=== PATIENT | female | born 1985 | race Caucasian/White ===

== ENCOUNTER 2022-10-11 10:58 | Inpatient (IN) ==
[2022-10-11] MEDS ORDERED: HYDROmorphone INJ 1 MG/ML SYRINGE IV STA (11:09)
[2022-10-11] MEDS ORDERED: ONDANSETRON INJ 2 MG/ML 2 ML VIAL IV STA (11:09)
[2022-10-11] MEDS ORDERED: SODIUM CHLORIDE 0.9% 1000ML 1,000 ML IV ONE (11:09)
--- NOTE | 2022-10-11 11:14 | Emergency Department Note ---
Impression & Plan Abdominal pain, RUQ, Biliary colic ED Provider Note Name: DOT GAYTAN Age: 37 Sex: F Arrives Via: Walk-In Informant: Patient ED Provider: Garland Steele MD Chief Complaint: Right upper quadrant pain Impression: As per impressions above Medical Decision Makin-year-old female with history of obesity, diabetes, hypertension, dyslipidemia, GERD arrives for evaluation of worsening right upper quadrant/epigastric abdominal pain. Notes she is having fevers last night. Is been ongoing for the last few months including a ER visit which showed a distended gallbladder no clear evidence of cholecystitis. She was evaluated in the outpatient clinic earlier today with an outpatient ultrasound revealing concerns for acute cholecystitis. I did review the ultrasound findings from outside clinic which note gallbladder distention with Stark sign positive but no other clear evidence of acute cholecystitis on imaging. With her history and findings I thought it is reasonable to get labs which are essentially unremarkable. She had been given some IV pain medications and fluids and is doing much better. Given the recurrence of this and the fact she was sent by [facility] for general surgery evaluation I think it is reasonable to consult them. Initial plan they requested patient be admitted to hospitalist service though given surgical nature of case patient was admitted to their service for further management. Patient is stable no distress and comfortable with this plan. Prior Medical Record and Triage/Nursing Notes reviewed by Me External chart review by me including ultrasound done in outside clinic earlier today. Differentials:Biliary colic, cholecystitis, cholangitis, pancreatitis, peptic ulcer disease, GERD, bowel ischemia, appendicitis, renal colic, pyelonephritis amongst many other pathologies considered. Vital Signs: reviewed and remarkable for no significant abnormalities Interventions: Dilaudid 1 mg IV, normal saline bolus 1 L, Zofran 4 mg IV Labs:Reviewed and remarkable for no significant abnormalities of LFTs, CBC, BMP, lipase Imaging:Reviewed outside imaging with concern for acute cholecystitis due to distended gallbladder and positive Stark sign Consults:Dr. Morales of the [facility] general surgery service at [facility]. Plan: Disposition:Hospitalization. Condition: Good History of Present Illness:37-year-old female arrives for evaluation of abdominal pain. Patient with several weeks of epigastric right upper quadrant pain on and off. The last 2 days that is severe increasing pain. Associated nausea. Associated with low-grade fevers chills and fatigue. She notes she gets lightheaded with standing. No falls, trauma, injuries. Patient has been dealing with some gallbladder issues the last few months knowing that the gallbladder has been moderately dilated. Today she was seen at her PCP office where an ultrasound apparently revealed acute gallbladder infection. She was advised to come to the ER for repeat evaluation. Pain makes worse rest makes better. She has not eaten anything today. She denies any medications prior to arrival. Past History:Anxiety, depression, diabetes, hypertension, dyslipidemia Home Medications:See Below Allergies:No known drug allergies Vitals:Blood Pressure: 124/84, Pulse 85, RR 20, T 37C, O2 96% on RA Physical Exam: GENERAL: Patient is uncomfortable appearing and in moderate distress. EYES: No scleral icterus, unremarkable pupils. RESPIRATORY: No dyspnea. Clear to auscultation and equal bilaterally. No wheeze, no rhonchi. CARDIOVASCULAR: Regular rate and rhythm.No murmurs, rubs, gallops appreciated. GASTROINTESTINAL: TTP RUQ/Epig, otherwise Abdomen soft, non-tender, no peritonitis.Bowel sounds positive.No masses appreciated. EXTREMITIES: Normal motion all extremities, no cyanosis, no edema. NEUROLOGIC: Alert and oriented, no gross focal neurologic deficit appreciated SKIN: No rash, no jaundice, no diaphoresis. PSYCH: Appropriate GCS: 15 ED Course: Times/Reassessments: Patient is calm comfortable and in no significant distress though does continue to have tenderness palpation on right upper quadrant. Does not have peritonitis. Does not have evidence of sepsis Garland Steele MD Past Med/Surg History Medical History Asthma no inhaler, well controlled Depression Diabetes mellitus, type 2 NIDDM GERD (gastroesophageal reflux disease) OTC medications PRN Hyperlipidemia Hypertension Migraine Surgical History H/O vaginal surgery Posterior Repair History of colonoscopy Family History Uncle FHx: prostate cancer Family history of diabetes mellitus Mother Family history of diabetes mellitus Aunt Family history of diabetes mellitus Grandmother (Paternal) Family history of diabetes mellitus Social History Smoking Status: Former smoker Tobacco Type: E-cigarettes / Vaping Cigarettes Per Day: 3-4 cigs daily x 20 years; Smoking End Date: 20 years ago; Second Hand Exposure: No; Tobacco Cessation Education Requested by Patient: No Hx Alcohol Use: Yes Alcohol type: other Hx Substance Use: No Preferred Language: Telugu Communication Ability: Effective Web Marketing Intern Required: No Beliefs That Will Affect Care: None Current Living Situation: Family Current Living Situation Comment: with mother Other Information That Helps Us Care for You: No Feels Safe at Home: Yes Safety Concerns: Feels Safe At This Time Assistive Devices: None Allergies Allergies Allergy/AdvReac Type Severity Reaction Status Date / Time No Known Allergies Allergy Verified 08/20/19 08:23 Home Meds Home Medications Medication Instructions Recorded Confirmed atorvastatin 10 mg tablet 10 mg PO QPM 08/12/19 10/11/22 bupropion HCl 150 mg 24 hr tablet, 150 mg PO QPM 08/12/19 10/11/22 extended release medroxyprogesterone 150 mg/mL 150 mg IM Q90D 08/12/19 10/11/22 intramuscular suspension (Depo-Provera) escitalopram oxalate 20 mg tablet 20 mg PO DAILY 10/11/22 10/11/22 metformin 1,000 mg tablet 1,000 mg PO BID 10/11/22 10/11/22 omeprazole 40 mg capsule,delayed 40 mg PO DAILY 10/11/22 10/11/22 release propranolol 160 mg capsule,24 160 mg PO DAILY 10/11/22 10/11/22 hr,extended release Results & Data (ED) Vital Signs Vital Signs - 24 hr 10/11/22 11:00 10/11/22 12:59 10/11/22 14:00 Temperature 37 C Temperature Source Oral Pulse Rate 85 Pulse Rate [Apical] 74 75 Respiratory Rate 20 13 14 Respiratory Effort / Characteristics Non-Labored Spontaneous Respiratory Depth Normal Respiratory Pattern Regular Blood Pressure 124/84 Blood Pressure [Left Arm] 138/92 138/92 Blood Pressure Mean 97 Blood Pressure Mean [Left Arm] 107 107 Pulse Oximetry 96 97 98 Oxygen Delivery Method Room Air Sepsis Recent Fever Within 48 Hours No Sepsis New/Unexplained Change in Mental Status No Sepsis Action Taken by Nursing No Action Required Laboratory Data 10/11/22 11:32 10/11/22 11:32 Lab Results 10/11/22 10/11/22 10/11/22 Range/Units 11:32 11:32 11:33 WBC 13.22 H (4.8-10.8) K/ul RBC 5.33 (4.20-5.40) M/uL Hgb 14.9 (12.0-16.0) g/dl Hct 45.5 (37.0-47.0) % MCV 85.4 (80.0-100.0) fL MCH 28.0 (25.0-34.0) pg MCHC 32.7 (32.0-36.0) g/dL RDW Std Deviation 42.3 (36.4-46.3) fL RDW Coeff of Mando 13.7 (11.5-14.5) % Plt Count 323 (130-400) K/uL MPV 9.5 (9.4-12.4) fL Immature Gran % (Auto) 0.4 % Neut % (Auto) 60.6 % Lymph % (Auto) 30.0 % [place] % (Auto) 6.4 % Eos % (Auto) 2.0 % Baso % (Auto) 0.6 % Neut # (Auto) 8.01 H (1.40-6.50) K/uL Lymph # (Auto) 3.97 H (1.2-3.4) K/uL [place] # (Auto) 0.85 H (0.11-0.59) K/uL Eos # (Auto) 0.26 (0-0.50) K/uL Baso # (Auto) 0.08 (0-0.2) K/uL Immature Gran # (Auto) 0.05 (0.01-0.20) K/uL Sodium 139 (136-145) mmol/L Potassium 4.1 (3.5-5.1) mmol/L Chloride 105 (98-107) mmol/L Carbon Dioxide 29 (21-32) mmol/L Anion Gap 5 (3-11) BUN 14 (6-23) mg/dl Creatinine 0.79 (0.6-1.2) mg/dl Est Cr Clr Drug Dosing 122.1 ml/min Est GFR ( Amer) 109.3 ml/min Est GFR (Non-Af Amer) 94.3 ml/min BUN/Creatinine Ratio 17.7 (10-20) Glucose 137 H (70-99(Fasting)) mg/dl Calcium 9.2 (8.5-10.1) mg/dl Total Bilirubin 0.5 (0.2-1.0) mg/dl Direct Bilirubin 0.0 (0-0.2) mg/dl AST 15 (13-39) U/L ALT 14 (7-52) U/L Alkaline Phosphatase 78 (34-104) U/L Total Protein 7.8 (6.0-8.3) gm/dl Albumin 4.2 (3.4-5.0) gm/dl Lipase 46 (11-82) U/L Urine Color Yellow Urine Appearance Cloudy A (Clear) Urine pH 7.5 (4.5-7.5) Ur Specific [place] 1.025 (1.000-1.030) Urine Protein Trace H (Negative) Urine Glucose (UA) Negative (Negative) Urine Ketones Trace H (Negative) Urine Blood Negative (Negative) Urine Nitrite Negative (Negative) Urine Bilirubin Negative (Negative) Urine Urobilinogen Negative (Negative) Ur Leukocyte Esterase Trace H (Negative) Urine WBC (Auto) 1-5 (0-5) /hpf Urine RBC (Auto) 0-4 (0-4) /hpf U Hyaline Cast (Auto) 1-5 (0-5) /lpf U Epithel Cells (Auto) >30 H (0-5) /lpf Urine Bacteria (Auto) 2+ H (Negative) Urine Test (Negative) 10/11/22 Range/Units 11:33 WBC (4.8-10.8) K/ul RBC (4.20-5.40) M/uL Hgb (12.0-16.0) g/dl Hct (37.0-47.0) % MCV (80.0-100.0) fL MCH (25.0-34.0) pg MCHC (32.0-36.0) g/dL RDW Std Deviation (36.4-46.3) fL RDW Coeff of Mando (11.5-14.5) % Plt Count (130-400) K/uL MPV (9.4-12.4) fL Immature Gran % (Auto) % Neut % (Auto) % Lymph % (Auto) % [place] % (Auto) % Eos % (Auto) % Baso % (Auto) % Neut # (Auto) (1.40-6.50) K/uL Lymph # (Auto) (1.2-3.4) K/uL [place] # (Auto) (0.11-0.59) K/uL Eos # (Auto) (0-0.50) K/uL Baso # (Auto) (0-0.2) K/uL Immature Gran # (Auto) (0.01-0.20) K/uL Sodium (136-145) mmol/L Potassium (3.5-5.1) mmol/L Chloride (98-107) mmol/L Carbon Dioxide (21-32) mmol/L Anion Gap (3-11) BUN (6-23) mg/dl Creatinine (0.6-1.2) mg/dl Est Cr Clr Drug Dosing ml/min Est GFR ( Amer) ml/min Est GFR (Non-Af Amer) ml/min BUN/Creatinine Ratio (10-20) Glucose (70-99(Fasting)) mg/dl Calcium (8.5-10.1) mg/dl Total Bilirubin (0.2-1.0) mg/dl Direct Bilirubin (0-0.2) mg/dl AST (13-39) U/L ALT (7-52) U/L Alkaline Phosphatase (34-104) U/L Total Protein (6.0-8.3) gm/dl Albumin (3.4-5.0) gm/dl Lipase (11-82) U/L Urine Color Urine Appearance (Clear) Urine pH (4.5-7.5) Ur Specific [place] (1.000-1.030) Urine Protein (Negative) Urine Glucose (UA) (Negative) Urine Ketones (Negative) Urine Blood (Negative) Urine Nitrite (Negative) Urine Bilirubin (Negative) Urine Urobilinogen (Negative) Ur Leukocyte Esterase (Negative) Urine WBC (Auto) (0-5) /hpf Urine RBC (Auto) (0-4) /hpf U Hyaline Cast (Auto) (0-5) /lpf U Epithel Cells (Auto) (0-5) /lpf Urine Bacteria (Auto) (Negative) Urine Test Negative (Negative) Administered Medications Atorvastatin Calcium (Atorvastatin 10 Mg Tab) 10 mg PO QPM STEPHIE Stop: 11/10/22 20:59 Last Admin: 10/11/22 21:40 Dose: 10 mg Documented By: ANTHONY Bupropion HCl (Bupropion Xl 150 Mg Tabcr) 150 mg PO QPM [facility] Stop: 11/10/22 20:59 Last Admin: 10/11/22 21:32 Dose: 150 mg Documented By: ANTHONY Escitalopram Oxalate (Escitalopram Oxalate 20 Mg Tab) 20 mg PO HS [facility] Stop: 11/10/22 22:14 Last Admin: 10/11/22 22:13 Dose: Not Given Documented By: ANTHONY Sodium Chloride (Nss 1000ml) 1,000 mls @ 125 mls/hr IV .Q8H [facility] Stop: 11/10/22 17:00 Last Admin: 10/12/22 05:30 Dose: 125 mls/hr Documented By: Infusion: 10/12/22 02:11 Dose: 125 mls/hr Documented By: Admin: 10/11/22 18:11 Dose: 125 mls/hr Documented By: TORSTEN Piperacillin Sod/Tazobactam (Sod 3.375 gm/ Dextrose) 115 mls @ 28.75 mls/hr IV Q8H [facility]; Protocol Stop: 10/13/22 21:59 Last Admin: 10/12/22 05:30 Dose: 28.8 mls/hr Documented By: Infusion: 10/12/22 01:33 Dose: 0 mls/hr Documented By: Admin: 10/11/22 21:32 Dose: 28.8 mls/hr Documented By: ANTHONY Pantoprazole Sodium 40 mg/ (Syringe) 10 mls @ 5 mls/min IV BID [facility] Stop: 11/10/22 20:59 Last Admin: 10/12/22 08:31 Dose: 5 mls/min Documented By: Admin: 10/11/22 21:32 Dose: 5 mls/min Documented By: ANTHONY Insulin Aspart (Insulin Aspart Per Unit) 0 units SC ACHS [facility] Stop: 11/10/22 20:59 Last Admin: 10/12/22 08:46 Dose: Not Given Documented By: Admin: 10/11/22 21:32 Dose: Not Given Documented By: ANTHONY Ondansetron HCl (Ondansetron Inj 2 Mg/Ml 2 Ml Vial) 4 mg IV Q4H PRN PRN Reason: Nausea And Vomiting Stop: 11/10/22 17:00 Last Admin: 10/11/22 18:22 Dose: 4 mg Documented By: TORSTEN Pantoprazole Sodium (Pantoprazole 40 Mg Tab) 40 mg PO DAILY STEPHIE Stop: 11/11/22 08:59 Last Admin: 10/12/22 08:30 Dose: Not Given Documented By: JIMMIE Propranolol HCl (Propranolol Hcl La 80 Mg Capcr) 160 mg PO DAILY STEPHIE Stop: 11/11/22 08:59 Last Admin: 10/12/22 08:30 Dose: Not Given Documented By: JIMMIE Discontinued Medications Escitalopram Oxalate (Escitalopram Oxalate 20 Mg Tab) 20 mg PO DAILY STEPHIE Stop: 11/11/22 08:59 Last Admin: 10/11/22 21:40 Dose: 20 mg Documented By: ANTHONY Hydromorphone HCl (Hydromorphone Inj 1 Mg/Ml Syringe) 1 mg IV NOW STA Stop: 10/11/22 11:10 Last Admin: 10/11/22 11:35 Dose: 1 mg Documented By: HOMAR Sodium Chloride (Nss 1000ml) 1,000 mls @ 999 mls/hr IV .Q1H1M ONE Stop: 10/11/22 12:09 Last Infusion: 10/11/22 12:36 Dose: 0 mls/hr Documented By: Admin: 10/11/22 11:35 Dose: 999 mls/hr Documented By: HOMAR Cefoxitin Sodium (Mefoxin) 2,000 mg in 60 mls @ 100 mls/hr IV NOW STA Stop: 10/11/22 13:36 Last Infusion: 10/11/22 14:41 Dose: 0 mls/hr Documented By: [facility] Admin: 10/11/22 14:05 Dose: 100 mls/hr Documented By: ISAIAS Piperacillin Sod/Tazobactam (Sod 3.375 gm/ Dextrose) 115 mls @ 230 mls/hr IV NOW ONE; Protocol Stop: 10/11/22 17:44 Last Infusion: 10/11/22 19:07 Dose: 0 mls/hr Documented By: Admin: 10/11/22 18:25 Dose: 230 mls/hr Documented By: TORSTEN Ondansetron HCl (Ondansetron Inj 2 Mg/Ml 2 Ml Vial) 4 mg IV NOW STA Stop: 10/11/22 11:10 Last Admin: 10/11/22 11:35 Dose: 4 mg Documented By: MD Discharge Plan Visit Data Chief Complaint: Illness Stated Complaint: GALLBLADDER TESTS RESULTS ED Provider: Garland Steele Discharge Problem: Abdominal pain, RUQ, Biliary colic Patient Disposition: Admitted As Inpatient Discharge Instructions Interventions: ED Discharge Assessment Last Done: 10/11/22 16:45
[2022-10-11 12:02] LABS: Basophils # (auto) 0.08 K/uL (0-0.2); Basophils % (auto) 0.6 %; Eosinophils # (auto) 0.26 K/uL (0-0.50); Hematocrit (blood only) 45.5 % (37.0-47.0); Hemoglobin 14.9 g/dl (12.0-16.0); Immature Granulocytes # (auto) 0.05 K/uL (0.01-0.20); Immature Granulocytes % (auto) 0.4 %; Lymphocytes # (auto) 3.97 K/uL (1.2-3.4); Mean Corpuscular Hgb Conc 32.7 g/dL (32.0-36.0); Mean Corpuscular Volume 85.4 fL (80.0-100.0); Mean Platelet Volume 9.5 fL (9.4-12.4); Monocytes # (auto) 0.85 K/uL (0.11-0.59); Monocytes % (auto) 6.4 %; Neutrophils # (auto) 8.01 K/uL (1.40-6.50); Neutrophils % (auto) 60.6 %; Platelet Count 323 K/uL (130-400); RDW Coefficient of Variation 13.7 % (11.5-14.5); RDW Standard Deviation 42.3 fL (36.4-46.3); Red Blood Count 5.33 M/uL (4.20-5.40); White Blood Count 13.22 K/ul (4.8-10.8)
[2022-10-11 12:11] LABS: Pregnancy Test, Urine Negative (Negative)
[2022-10-11 12:12] LABS: Appearance Urine Cloudy (Clear); Bacteria Urine Automated 2+ (Negative); Bilirubin Urine Negative (Negative); Blood Urine Negative (Negative); Color Urine Yellow; Epithelial Cell Urine Auto >30 /lpf (0-5); Glucose Urine UA Negative (Negative); Ketones Urine Trace (Negative); Leukocyte Esterase Urine Trace (Negative); Nitrite Urine Negative (Negative); Specific Gravity Urine 1.025 (1.000-1.030); Urobilinogen Urine Negative (Negative); pH Urine 7.5 (4.5-7.5)
[2022-10-11 12:20] LABS: Albumin Level 4.2 gm/dl (3.4-5.0); BUN Creatinine Ratio 17.7 (10-20); Bilirubin,Total 0.5 mg/dl (0.2-1.0); Calcium 9.2 mg/dl (8.5-10.1); Creatinine Clr Calc Pharmacy 122.1 ml/min; Est GFR (African American) 109.3 ml/min; Est GFR (Non-African American) 94.3 ml/min; Potassium 4.1 mmol/L (3.5-5.1); Total Protein 7.8 gm/dl (6.0-8.3)
[2022-10-11 12:24] LABS: Protein Urine Trace (Negative)
[2022-10-11 12:39] LABS: RBC Urine Automated 0-4 /hpf (0-4)
[2022-10-11] MEDS ORDERED: cefOXitin 2,000 MG/60 ML BAG IV STA (13:01)
--- NOTE | 2022-10-11 14:01 | Surgery Consultation ---
Date of Consultation October 11, 2022 Assessment & Plan (1) Abdominal pain: (2) Nausea and vomiting: (3) GERD (gastroesophageal reflux disease): Plan 37 year-old female with a few month history of nausea/vomiting, abdominal pain with gallstones presented to ED with complaint of persistent symptoms with outpatient ultrasound equivocal for acute cholecystitis. Leukocytosis of 13K today but afebrile, t. bili, lfts, lipse wnl. Exam with tenderness in RUQ on deep palpation and epigastrium. Ddx: Symptomatic cholelithiasis, chronic cholecystitis, gastritis, GERD, gastroparesis Plan: Discussed with patient and her mother that her symptoms could be gallbladder related however her nausea, bleching, and GERD after liquids does not necessarily point to cholecystitis or biliary colic alone, and could be upper GI etiology. Given these symptoms I would recommended admitting patient to hospital for observation and GI consultation to see if upper endoscopy is warranted. Her symptoms may not be completely resolved with cholecystectomy. Discussed possibility of obtaining a HIDA scan but unfortunately unable to do over the weekend Would closely monitor her abdominal pain and nausea while admitted and if no improvement could consider cholecystectomy Would recommend PPI for her GERD Repeat am labs IV fluids, pain management as needed, and IV zofran prn nausea U/S study gallbladder Discussed with Dr. Morales who recommended above plan and will evaluate patient separately. History of Present Illness Reason for Consultation: RUQ abdominal pain, nausea and vomiting Requesting Physician: Dr. Steele History of Present Illness Shawanda is a 37 year old female with history of morbid obesity, HTN, Diabetes, who presented to the emergency room from [facility] due to persistent nausea, occasional vomiting, and upper abdominal pain. Outpatient abdominal ultrasound equivocal for acute cholecystitis as there was no gallbladder wall thickening or pericholecystic fluid but there was postive sonographic murphys sign. She has been having issues for a few months. Was in ED in August and had a CT scan which showed gallstones and distended gallbladder. Her nausea and vomiting was felt to be secondary to Ozempic which she stopped and then started again and still had persistent sympotoms. States she has not been on Ozempic for a few weeks. Has lost about 50-60 pounds on Ozempic in last 4-5 months. In asking about her symptoms she states she has nausea immediately after drinking even water with belching and significant heartburn. States she was put on a medication for heartburn but it is not helping. States she feels bloated. Loose stools but has always had inconsistent bowel habits for years with 3 normal colonoscopies. Has never had an upper endoscopy or followed with gastroenterology. Some pain in the mid abdomen and right upper abdomen with some radiation to her back. Pain was 10/10 today. Currently not having any pain but was given Dilaudid. I reviewed pt's H/P, labs and CT scan with pt , Allergies Allergy/AdvReac Type Severity Reaction Status Date / Time No Known Allergies Allergy Verified 08/20/19 08:23 Home Medications Medication Instructions Recorded Confirmed Type atorvastatin 10 mg tablet 10 mg PO QPM 08/12/19 08/20/19 History bupropion HCl 150 mg 24 hr tablet, 150 mg PO QPM 08/12/19 08/20/19 History extended release medroxyprogesterone 150 mg/mL 150 mg IM Q90D 08/12/19 08/20/19 History intramuscular suspension (Depo-Provera) metformin 500 mg tablet 500 mg PO QPM 08/12/19 08/20/19 History propranolol 160 mg capsule,24 160 mg PO QPM 08/12/19 08/20/19 History hr,extended release Patient History Medical History (Updated 10/11/22 @ 15:16 by Xochitl Miller PA-C) Asthma no inhaler, well controlled Depression Diabetes mellitus, type 2 NIDDM GERD (gastroesophageal reflux disease) OTC medications PRN Hyperlipidemia Hypertension Migraine Surgical History H/O vaginal surgery Posterior Repair History of colonoscopy Family History Uncle FHx: prostate cancer Family history of diabetes mellitus Mother Family history of diabetes mellitus Aunt Family history of diabetes mellitus Grandmother (Paternal) Family history of diabetes mellitus Social History Smoking Status: Current every day smoker Tobacco Type: E-cigarettes / Vaping Cigarettes Per Day: 3-4 cigs daily x 20 years; Second Hand Exposure: Yes; Hx Alcohol Use: No Hx Substance Use: No Preferred Language: Guyanese Communication Ability: Effective Documentation Supervisor Required: No Beliefs That Will Affect Care: None Current Living Situation: Family Current Living Situation Comment: mother Feels Safe at Home: Yes Assistive Devices: Glasses Review of Systems Review of Systems: All systems reviewed & are unremarkable except as noted in HPI & below Physical Exam Constitutional: WD/WN, vitals as above + morbidly obese, cooperative and comfortable; not ill appearing and not frail appearing Neck: normal visual inspection and trachea midline Respiratory: normal respiratory effort, lungs clear to auscultation Cardiovascular: RRR, no murmur, no edema Gastrointestinal (Abdomen): Inspection/Auscultation: abdomen normal to inspection; abdomen not distended Percussion/Palpation: + abdomen tender (RUQ on deep palpation but negative [place] sign) and abdomen soft; no guarding and abdomen not rigid Skin: no rashes, warm and dry no jaundice Psychiatric: A+Ox3, euthymic affect Results & Data ([facility]) Vital Signs (Past 12 Hours) Vital Signs Temp Pulse Resp BP Pulse Ox O2 Del Method 10/11/22 11:00 37 C 85 20 124/84 96 Room Air Laboratory Results 10/11/22 10/11/22 10/11/22 Range/Units 11:33 11:33 11:32 WBC (4.8-10.8) K/ul RBC (4.20-5.40) M/uL Hgb (12.0-16.0) g/dl Hct (37.0-47.0) % MCV (80.0-100.0) fL MCH (25.0-34.0) pg MCHC (32.0-36.0) g/dL RDW Std Deviation (36.4-46.3) fL RDW Coeff of Mando (11.5-14.5) % Plt Count (130-400) K/uL MPV (9.4-12.4) fL Immature Gran % (Auto) % Neut % (Auto) % Lymph % (Auto) % [place] % (Auto) % Eos % (Auto) % Baso % (Auto) % Neut # (Auto) (1.40-6.50) K/uL Lymph # (Auto) (1.2-3.4) K/uL [place] # (Auto) (0.11-0.59) K/uL Eos # (Auto) (0-0.50) K/uL Baso # (Auto) (0-0.2) K/uL Immature Gran # (Auto) (0.01-0.20) K/uL Sodium 139 (136-145) mmol/L Potassium 4.1 (3.5-5.1) mmol/L Chloride 105 (98-107) mmol/L Carbon Dioxide 29 (21-32) mmol/L Anion Gap 5 (3-11) BUN 14 (6-23) mg/dl Creatinine 0.79 (0.6-1.2) mg/dl Est Cr Clr Drug Dosing 122.1 ml/min Est GFR ( Amer) 109.3 ml/min Est GFR (Non-Af Amer) 94.3 ml/min BUN/Creatinine Ratio 17.7 (10-20) Glucose 137 H (70-99(Fasting)) mg/dl Calcium 9.2 (8.5-10.1) mg/dl Total Bilirubin 0.5 (0.2-1.0) mg/dl Direct Bilirubin 0.0 (0-0.2) mg/dl AST 15 (13-39) U/L ALT 14 (7-52) U/L Alkaline Phosphatase 78 (34-104) U/L Total Protein 7.8 (6.0-8.3) gm/dl Albumin 4.2 (3.4-5.0) gm/dl Lipase 46 (11-82) U/L Urine Color Yellow Urine Appearance Cloudy A (Clear) Urine pH 7.5 (4.5-7.5) Ur Specific [place] 1.025 (1.000-1.030) Urine Protein Trace H (Negative) Urine Glucose (UA) Negative (Negative) Urine Ketones Trace H (Negative) Urine Blood Negative (Negative) Urine Nitrite Negative (Negative) Urine Bilirubin Negative (Negative) Urine Urobilinogen Negative (Negative) Ur Leukocyte Esterase Trace H (Negative) Urine WBC (Auto) 1-5 (0-5) /hpf Urine RBC (Auto) 0-4 (0-4) /hpf U Hyaline Cast (Auto) 1-5 (0-5) /lpf U Epithel Cells (Auto) >30 H (0-5) /lpf Urine Bacteria (Auto) 2+ H (Negative) Urine Test Negative (Negative) 10/11/22 Range/Units 11:32 WBC 13.22 H (4.8-10.8) K/ul RBC 5.33 (4.20-5.40) M/uL Hgb 14.9 (12.0-16.0) g/dl Hct 45.5 (37.0-47.0) % MCV 85.4 (80.0-100.0) fL MCH 28.0 (25.0-34.0) pg MCHC 32.7 (32.0-36.0) g/dL RDW Std Deviation 42.3 (36.4-46.3) fL RDW Coeff of Mando 13.7 (11.5-14.5) % Plt Count 323 (130-400) K/uL MPV 9.5 (9.4-12.4) fL Immature Gran % (Auto) 0.4 % Neut % (Auto) 60.6 % Lymph % (Auto) 30.0 % [place] % (Auto) 6.4 % Eos % (Auto) 2.0 % Baso % (Auto) 0.6 % Neut # (Auto) 8.01 H (1.40-6.50) K/uL Lymph # (Auto) 3.97 H (1.2-3.4) K/uL [place] # (Auto) 0.85 H (0.11-0.59) K/uL Eos # (Auto) 0.26 (0-0.50) K/uL Baso # (Auto) 0.08 (0-0.2) K/uL Immature Gran # (Auto) 0.05 (0.01-0.20) K/uL Sodium (136-145) mmol/L Potassium (3.5-5.1) mmol/L Chloride (98-107) mmol/L Carbon Dioxide (21-32) mmol/L Anion Gap (3-11) BUN (6-23) mg/dl Creatinine (0.6-1.2) mg/dl Est Cr Clr Drug Dosing ml/min Est GFR ( Amer) ml/min Est GFR (Non-Af Amer) ml/min BUN/Creatinine Ratio (10-20) Glucose (70-99(Fasting)) mg/dl Calcium (8.5-10.1) mg/dl Total Bilirubin (0.2-1.0) mg/dl Direct Bilirubin (0-0.2) mg/dl AST (13-39) U/L ALT (7-52) U/L Alkaline Phosphatase (34-104) U/L Total Protein (6.0-8.3) gm/dl Albumin (3.4-5.0) gm/dl Lipase (11-82) U/L Urine Color Urine Appearance (Clear) Urine pH (4.5-7.5) Ur Specific [place] (1.000-1.030) Urine Protein (Negative) Urine Glucose (UA) (Negative) Urine Ketones (Negative) Urine Blood (Negative) Urine Nitrite (Negative) Urine Bilirubin (Negative) Urine Urobilinogen (Negative) Ur Leukocyte Esterase (Negative) Urine WBC (Auto) (0-5) /hpf Urine RBC (Auto) (0-4) /hpf U Hyaline Cast (Auto) (0-5) /lpf U Epithel Cells (Auto) (0-5) /lpf Urine Bacteria (Auto) (Negative) Urine Test (Negative) Diagnostic Findings OUTPATIENT ABDOMINAL ULTRASOUND 10/11/2022: FINDINGS The liver is normal in size and increased in echotexture, reflecting steatosis. There is no focal hepatic mass. The biliary tract is within normal limits with the CBD measuring 3 mm. There is cholelithiasis. No gallbladder wall thickening or pericholecystic fluid. Sonographic Stark's sign is reportedly positive. Pancreas is not well seen. The right kidney measures 12.1 cm in length and is unremarkable. IMPRESSION IMPRESSION Cholelithiasis and positive sonographic Stark's sign per the tailing machine operator. Findings are equivocal for acute cholecystitis. Nuclear medicine HIDA scan may be performed to evaluate for patency of the cystic duct.
--- NOTE | 2022-10-11 14:45 | History & Physical Report ---
Date of Service October 11, 2022 History of Present Illness Primary Care Provider: Matias Zepeda MD This is a 37 yo F with PMhx of PCOS depression, GERD, obesisyt with BMI of 42.8 who presents with abdominal pain. Admit to having nausea, indigestion, with belching with any amount or type of food currently. Denies current vomiting, fever, chills, sweats but reports having a temp of 99.6 earlier today at the hospital. She also mentions her bp was slightly low at the outpatient clinic but it has since improved here. Pt notes she was taking amoxicillin for a recent ear infection for 10 day course (Started Sep 26) as well prednisone taper for 5 days and finished them both. Last date of antibiotic taken was this past Friday 10/06. and previously was vomiting with taking Ozempic before. Surgical hx: rectocele surgery in 2016, notices pain speficially with intercourse Allergies Allergy/AdvReac Type Severity Reaction Status Date / Time No Known Allergies Allergy Verified 08/20/19 08:23 Home Medications Medication Instructions Recorded Confirmed Type atorvastatin 10 mg tablet 10 mg PO QPM 08/12/19 08/20/19 History bupropion HCl 150 mg 24 hr tablet, 150 mg PO QPM 08/12/19 08/20/19 History extended release medroxyprogesterone 150 mg/mL 150 mg IM Q90D 08/12/19 08/20/19 History intramuscular suspension (Depo-Provera) metformin 500 mg tablet 500 mg PO QPM 08/12/19 08/20/19 History propranolol 160 mg capsule,24 160 mg PO QPM 08/12/19 08/20/19 History hr,extended release Past Med/Surg History Medical History (Updated 10/11/22 @ 14:07 by Teresa Dawn PA-C) Asthma no inhaler, well controlled Depression Diabetes mellitus, type 2 NIDDM GERD (gastroesophageal reflux disease) OTC medications PRN Hyperlipidemia Hypertension Migraine Surgical History H/O vaginal surgery Posterior Repair History of colonoscopy Family History Uncle FHx: prostate cancer Family history of diabetes mellitus Mother Family history of diabetes mellitus Aunt Family history of diabetes mellitus Grandmother (Paternal) Family history of diabetes mellitus Social History Smoking Status: Current every day smoker Tobacco Type: E-cigarettes / Vaping Cigarettes Per Day: 3-4 cigs daily x 20 years; Second Hand Exposure: Yes; Hx Alcohol Use: No Hx Substance Use: No Preferred Language: German Communication Ability: Effective Waterway Traffic Checker Required: No Beliefs That Will Affect Care: None Current Living Situation: Family Current Living Situation Comment: mother Feels Safe at Home: Yes Assistive Devices: Glasses Results & Data Results & Data ([facility]) Vital Signs (Past 12 Hours) Vital Signs Temp Pulse Pulse Resp BP BP Pulse Ox 10/11/22 14:00 75 14 138/92 98 10/11/22 12:59 74 13 138/92 97 10/11/22 11:00 37 C 85 20 124/84 96 O2 Del Method 10/11/22 14:00 10/11/22 12:59 10/11/22 11:00 Room Air
--- NOTE | 2022-10-11 15:26 | Hospitalist Consultation ---
Date of Consultation October 11, 2022 Assessment & Plan (1) Biliary colic: (2) Abdominal pain: (3) Nausea and vomiting: (4) GERD (gastroesophageal reflux disease): - Admit per the primary team for Obs - Pt does not appear septic, or in acute distress. -Received a dose of cefoxitin in the ER, recommend switch to IV Zosyn -Abdominal exam serially -Diet per general surgery -Continue pain control, bowel regimen - Outpt U/S or RUQ reviewed personally showing cholelithiasis and positive sonographic Stark sign, findings are equivocal for acute cholecystitis. She is tender in RUQ on palpation. -WBC 13 K, trend - GI consulted - Can consider a HIDA scan - Follow UA, appears dirty, follow culture and adjust antibiotics appropiately - Hx of recent abx use with amoxicillin x 10d finished 2 for ear infection - possible that this was coving some of the abdominal complaints? Was also recently on prednisone taper x 5 days. (5) Diabetes mellitus, type 2: - Place on ISS with accuchecks achs - Ozempic normally takes on Wednesdays, follow am A1C, pt reports did not get the dose this week as she researched google and saw gallbladder adverse effects from the medication. Reports since starting ozempic she has noticed worsening nausea/vomiting issues. (6) Hyperlipidemia: - Statin therapy to be resumed per primary team, current LFT are WNL (7) Hypertension: - Consider propranolol to avoid rebound tachycardia, BP is stable here (8) Depression: - Would continue lexapro and wellbutrin DVT ppx: scd, ambulatory CODE: FULL Dispo: From home, Likely to remain in the hospital overnight for observation Thank you for involving us in the care of Miss Marcos. Please do not hesitate to call with questions or concerns. At this time medicine service will follow along. A total of 40 minutes were spent with greater than 50% of that time face to face with the patient, personally reviewing all current laboratories, imaging studies, past medication reconciliation, outpatient chart review, and discussion with specialists to collaborate care for the patient with attending. Please see attending documentation for corrections and/or additions. Supervising Physician Co-Signing Physician Notes I have seen and examined the patient and have discussed the case with the provider above. I agree with the assessment and plan as stated. Patient is a 37-year-old obese female with epigastric and right upper quadrant pain worse with any type of food or liquids. She was recently taking amoxicillin for 10 days for an ear infection. She also reports vomiting in response to Ozempic therapy started back in August. She stopped Ozempic and has not had issues with vomiting since that time. On exam she is in no acute distress but has significant epigastric and right upper quadrant tenderness to palpation. She is morbidly obese. Lungs are clear to auscultation bilaterally. Cardiac exam is within normal limits. Work-up includes a CBC with elevated white blood cell count of 13 K, normal H&H, normal platelets. Chemistry is within normal limits. Urinalysis reveals 2+ bacteria with greater than 30 epis. test is negative. Urine culture is pending. SARS-CoV-2 is negative. An abdominal ultrasound of the right upper quadrant reveals cholelithiasis and moderate gallbladder distention. These findings were equivocal for acute cholecystitis and there was no gallbladder wall thickening. She was started on antibiotics for possible acute cholecystitis and continues with pain and nausea control and fluids for supportive care. 1. RUQ/epigastric abdominal pain possibly secondary to acute calculous cholecystitis vs other etiology 2. morbid obesity 3. DMII Plan per general surgery was to monitor her closely for symptoms of pain and nausea and if no improvement could consider cholecystectomy. HIDA scan considered but cannot be performed over the weekend. Surgery request that GI be consulted given nonspecific symptoms of nausea belching and GERD after liquids that do not necessarily point to cholecystitis or biliary colic alone and could be upper GI in etiology. DO Micheal History of Present Illness Reason for Consultation: Abdominal Pain Requesting Physician: Dr. Morales Attending Physician: Dr. Morales History of Present Illness This is a 37 yo F with PMhx of PCOS depression, GERD, obesity with BMI of 42.8 who presents with abdominal pain. Her abdominal pain is located in the right upper quadrant, worse with palpation. It was noted on outpatient imaging on her ultrasound that she had a positive Stark sign. She admits to having nausea, indigestion, with belching with any amount or type of food currently. Denies current vomiting, fever, chills, sweats but reports having a temp of 99.6 earlier today at the outpatient clinic. She also mentions being told her bp was slightly low at the outpatient clinic but it has since improved here. Denies ever having any lightheadedness, dizziness. Pt notes she was taking amoxicillin for a recent ear infection for 10 day course (Started Sep 26) as well prednisone taper for 5 days and finished them both. Last date of antibiotic taken was this past Friday 10/06. Previously was vomiting with taking Ozempic starting back in August. She is using this for weight loss. Last dose was on 10/02 and after looking up possible side effects on google and seeing that it could cause gallbladder issues, she did not take her routine dose this week. Surgical hx: rectocele surgery in 2016. Denies any other abdominal surgeries. Hx of Cigarette smoking, quit several years ago, reports it took her 3 days to smoke an entire pack of cigarettes. Currently vapes multiple times per day. Allergies Allergy/AdvReac Type Severity Reaction Status Date / Time No Known Allergies Allergy Verified 08/20/19 08:23 Home Medications Medication Instructions Recorded Confirmed Type atorvastatin 10 mg tablet 10 mg PO QPM 08/12/19 10/11/22 History bupropion HCl 150 mg 24 hr tablet, 150 mg PO QPM 08/12/19 10/11/22 History extended release medroxyprogesterone 150 mg/mL 150 mg IM Q90D 08/12/19 10/11/22 History intramuscular suspension (Depo-Provera) escitalopram oxalate 20 mg tablet 20 mg PO DAILY 10/11/22 10/11/22 History metformin 1,000 mg tablet 1,000 mg PO BID 10/11/22 10/11/22 History omeprazole 40 mg capsule,delayed 40 mg PO DAILY 10/11/22 10/11/22 History release propranolol 160 mg capsule,24 160 mg PO DAILY 10/11/22 10/11/22 History hr,extended release Patient History Medical History (Updated 10/11/22 @ 15:16 by Xochitl Miller PA-C) Asthma no inhaler, well controlled Depression Diabetes mellitus, type 2 NIDDM GERD (gastroesophageal reflux disease) OTC medications PRN Hyperlipidemia Hypertension Migraine Surgical History H/O vaginal surgery Posterior Repair History of colonoscopy Family History Uncle FHx: prostate cancer Family history of diabetes mellitus Mother Family history of diabetes mellitus Aunt Family history of diabetes mellitus Grandmother (Paternal) Family history of diabetes mellitus Social History Smoking Status: Former smoker Tobacco Type: E-cigarettes / Vaping Cigarettes Per Day: 3-4 cigs daily x 20 years; Smoking End Date: 20 years ago; Second Hand Exposure: No; Tobacco Cessation Education Requested by Patient: No Hx Alcohol Use: Yes Alcohol type: other Hx Substance Use: No Preferred Language: Cymraes Communication Ability: Effective Automatic Silk Screen Printer Required: No Beliefs That Will Affect Care: None Current Living Situation: Family Current Living Situation Comment: with mother Other Information That Helps Us Care for You: No Feels Safe at Home: Yes Safety Concerns: Feels Safe At This Time Assistive Devices: None Review of Systems Review of Systems: Constitutional: As per HPI, currently No fever, sweats or chills Eyes: No diplopia, no worsening or blurred vision ENT: normal hearing, no trouble swallowing Respiratory: No cough, sputum, dyspnea at rest or on exertion Cardiovascular: No chest pain, tightness or palpitations Abdomen: + RUQ pain,+ nausea, no vomiting, diarrhea or constipation Musculoskeletal: No joint pain, calf pain, swelling Neurologic: No weakness, numbness/tingling, or balance problems Psychiatric: No anxiety or depression Skin: No rash or itch Physical Exam Physical Exam: General: awake, alert, no apparent distress, morbidly obese with BMI of 42.8 Head: Normocephalic, atraumatic ENT: PERRL, EOMI, no pharyngeal exudate, mucous membranes moist Chest: Clear to auscultation, on room air, no adventitious breath sounds Cardiac: Regular rate and rhythm, no murmur, no JVD, normal peripheral pulses, good capillary refill Abdominal: NABS x 4 quadrants, soft, nondistended, + RUQ tender to deep palpation, no rebound or guarding Extremities: Multiple abraisons over the left forearm from a cat, otherwise normal inspection, no peripheral edema or erythema, calfs nontender to palpation Psych: Normal mood and affect Neuro: AAO x 3, strength intact bilaterally and rated 5/5, no motor deficits, speech is clear, no peripheral sensory deficits Results & Data Results & Data ([facility]) Vital Signs (Past 12 Hours) Vital Signs Temp Pulse Pulse Resp BP BP Pulse Ox 10/11/22 14:00 75 14 138/92 98 10/11/22 12:59 74 13 138/92 97 10/11/22 11:00 37 C 85 20 124/84 96 O2 Del Method 10/11/22 14:00 10/11/22 12:59 10/11/22 11:00 Room Air Laboratory Results 10/11/22 11:33 Urine Culture - Pending Urine,Clean Catch 10/11/22 10/11/22 10/11/22 Unknown 11:33 11:33 WBC RBC Hgb Hct MCV MCH MCHC RDW Std Deviation RDW Coeff of Mando Plt Count MPV Immature Gran % (Auto) Neut % (Auto) Lymph % (Auto) [place] % (Auto) Eos % (Auto) Baso % (Auto) Neut # (Auto) Lymph # (Auto) [place] # (Auto) Eos # (Auto) Baso # (Auto) Immature Gran # (Auto) Sodium Potassium Chloride Carbon Dioxide Anion Gap BUN Creatinine Est Cr Clr Drug Dosing Est GFR ( Amer) Est GFR (Non-Af Amer) BUN/Creatinine Ratio Glucose Calcium Total Bilirubin Direct Bilirubin AST ALT Alkaline Phosphatase Total Protein Albumin Lipase Urine Color Yellow Urine Appearance Cloudy A Urine pH 7.5 Ur Specific [place] 1.025 Urine Protein Trace H Urine Glucose (UA) Negative Urine Ketones Trace H Urine Blood Negative Urine Nitrite Negative Urine Bilirubin Negative Urine Urobilinogen Negative Ur Leukocyte Esterase Trace H Urine WBC (Auto) 1-5 Urine RBC (Auto) 0-4 U Hyaline Cast (Auto) 1-5 U Epithel Cells (Auto) >30 H Urine Bacteria (Auto) 2+ H Urine Test Negative SARS-CoV-2, RNA, NAAT NEGATIVE 10/11/22 10/11/22 11:32 11:32 WBC 13.22 H RBC 5.33 Hgb 14.9 Hct 45.5 MCV 85.4 MCH 28.0 MCHC 32.7 RDW Std Deviation 42.3 RDW Coeff of Mando 13.7 Plt Count 323 MPV 9.5 Immature Gran % (Auto) 0.4 Neut % (Auto) 60.6 Lymph % (Auto) 30.0 [place] % (Auto) 6.4 Eos % (Auto) 2.0 Baso % (Auto) 0.6 Neut # (Auto) 8.01 H Lymph # (Auto) 3.97 H [place] # (Auto) 0.85 H Eos # (Auto) 0.26 Baso # (Auto) 0.08 Immature Gran # (Auto) 0.05 Sodium 139 Potassium 4.1 Chloride 105 Carbon Dioxide 29 Anion Gap 5 BUN 14 Creatinine 0.79 Est Cr Clr Drug Dosing 122.1 Est GFR ( Amer) 109.3 Est GFR (Non-Af Amer) 94.3 BUN/Creatinine Ratio 17.7 Glucose 137 H Calcium 9.2 Total Bilirubin 0.5 Direct Bilirubin 0.0 AST 15 ALT 14 Alkaline Phosphatase 78 Total Protein 7.8 Albumin 4.2 Lipase 46 Urine Color Urine Appearance Urine pH Ur Specific [place] Urine Protein Urine Glucose (UA) Urine Ketones Urine Blood Urine Nitrite Urine Bilirubin Urine Urobilinogen Ur Leukocyte Esterase Urine WBC (Auto) Urine RBC (Auto) U Hyaline Cast (Auto) U Epithel Cells (Auto) Urine Bacteria (Auto) Urine Test SARS-CoV-2, RNA, NAAT
--- NOTE | 2022-10-11 16:49 | Ultrasound Report ---
ABDOMINAL ULTRASOUND, RIGHT UPPER QUADRANT HISTORY: Gallbladder disease. COMPARISON: CT of the abdomen and pelvis August 01, 2022. FINDINGS: No hepatic lesions are identified. There is no biliary ductal dilatation. The common bile d uct measures 4 mm in caliber. The gallbladder is moderately distended and contains numerous gallstone s. No gallbladder wall thickening. No pericholecystic fluid is present. Sonographic Stark sign could not be assessed for given pain medication administration. The pancreatic body is normal. Head and ta il are partially obscured. There is no right hydronephrosis. IMPRESSION: 1. Cholelithiasis and moderate gallbladder distention. Sonographic Stark sign could not be assessed. Therefore, findings are equivocal for acute cholecystitis. No gallbladder wall thickening. 2. No biliary ductal dilatation. ACT 112: Negative or not required by law. Electronically signed by: Filemon Montoya M.D. 10/11/2022 4:47 PM
[2022-10-11] MEDS ORDERED: HYDROmorphone INJ 0.5 MG/0.5 ML SYR IV PRN (17:01)
[2022-10-11] MEDS ORDERED: ONDANSETRON INJ 2 MG/ML 2 ML VIAL IV PRN (17:01)
[2022-10-11] MEDS ORDERED: PIPERACILLIN/TAZOBACTAM 3.375 GM (over 30 mins) IV ONE (17:15)
[2022-10-11] MEDS: SODIUM CHLORIDE 0.9% 1000ML 1,000 ML IV SCH (18:11)
[2022-10-11] MEDS ORDERED: GLUCOSE 40% GEL 15 GM TUBE PO PRN (20:44)
[2022-10-11] MEDS ORDERED: CARBOHYDRATES FOR HYPOGLYCEMIA PO PRN (20:44)
[2022-10-11] MEDS ORDERED: GLUCAGON FOR INJ 1 MG VIAL SQ PRN (20:44)
[2022-10-11] MEDS ORDERED: GLUCOSE 10 TAB/TUBE PO PRN (20:44)
[2022-10-11] MEDS ORDERED: DEXTROSE 50% 50 ML SYRINGE IV PRN (20:44)
[2022-10-11] MEDS: buPROPion XL 150 MG TABCR PO SCH (21:32)
[2022-10-11] MEDS: PANTOprazole 40 MG in SYRINGE 0 ML IV SCH (21:32)
[2022-10-11] MEDS: PIPERACILLIN/TAZOBACTAM 3.375 GM in DEXTROSE 5% 100 ML IV SCH (21:32)
[2022-10-11] MEDS: INSULIN ASPART PER UNIT SC SCH (21:32)
[2022-10-11] MEDS: ATORVASTATIN 10 MG TAB PO SCH (21:40)
[2022-10-11] MEDS: ESCITALOPRAM OXALATE 20 MG TAB PO SCH (22:13)
[2022-10-11] MEDS ORDERED: Nursing to Pharmacy Communication SCH (22:15)
[2022-10-12] MEDS: PIPERACILLIN/TAZOBACTAM 3.375 GM in DEXTROSE 5% 100 ML IV SCH ×3 (05:30→22:28)
[2022-10-12] MEDS: SODIUM CHLORIDE 0.9% 1000ML 1,000 ML IV SCH ×3 (05:30→18:52)
--- NOTE | 2022-10-12 07:40 | Gastrointestinal Consultation ---
Date of Consultation October 12, 2022 Assessment & Plan (1) Biliary colic: She does has risk factors for gallbladder pathology, this was sudden onset although not associated with food. Differential diagnosis for this would be GERD, gallbladder pathology, dyspepsia. Fortunately at this time she is comfortable without symptoms. I agree with twice daily PPI as well as as needed H2 john. Will defer surgical timing and/or necessity to surgical team. Although, I do think that this most likely diagnosis at this time, will warrant outpatient EGD at some capacity if does not have surgery and symptoms persist. GI will sign off please call with any questions (2) GERD (gastroesophageal reflux disease): History of Present Illness Reason for Consultation: Epigastric and right upper quadrant abdominal pain Attending Physician: Rayo Morales MD History of Present Illness This is a 28 female with history of depression, GERD, obesity who presented with the acute onset of epigastric and right upper quadrant abdominal pain. This was associated with belching, nausea and heartburn. This came on suddenly without eating. She does have normal heartburn, however this time she says this was different. She had nausea without vomiting, she has been taking Ozempic for weight loss. She was admitted to the hospital after having concerns of possible gallbladder etiology. Evaluation in ER showed normal hematologic parameters other than a white count of 13,000 normal BMP, normal LFTs, right upper quadrant ultrasound showed jose e lithiasis, given patient's body habitus a sonographic Stark sign could not be elucidated. Given patient's body habitus sonographic Stark sign could not be elucidated. She feels well this morning, she is having no abdominal pain or heartburn. She is having no nausea and other than tired does not have complaints. She was given IV antibiotics as well as an acids and is in no acute distress. Awaiting evaluation from surgical attending. Allergies Allergy/AdvReac Type Severity Reaction Status Date / Time No Known Allergies Allergy Verified 08/20/19 08:23 Home Medications Medication Instructions Recorded Confirmed Type atorvastatin 10 mg tablet 10 mg PO QPM 08/12/19 10/11/22 History bupropion HCl 150 mg 24 hr tablet, 150 mg PO QPM 08/12/19 10/11/22 History extended release medroxyprogesterone 150 mg/mL 150 mg IM Q90D 08/12/19 10/11/22 History intramuscular suspension (Depo-Provera) escitalopram oxalate 20 mg tablet 20 mg PO DAILY 10/11/22 10/11/22 History metformin 1,000 mg tablet 1,000 mg PO BID 10/11/22 10/11/22 History omeprazole 40 mg capsule,delayed 40 mg PO DAILY 10/11/22 10/11/22 History release propranolol 160 mg capsule,24 160 mg PO DAILY 10/11/22 10/11/22 History hr,extended release Patient History Medical History Asthma no inhaler, well controlled Depression Diabetes mellitus, type 2 NIDDM GERD (gastroesophageal reflux disease) OTC medications PRN Hyperlipidemia Hypertension Migraine Surgical History H/O vaginal surgery Posterior Repair History of colonoscopy Family History Uncle FHx: prostate cancer Family history of diabetes mellitus Mother Family history of diabetes mellitus Aunt Family history of diabetes mellitus Grandmother (Paternal) Family history of diabetes mellitus Social History Smoking Status: Former smoker Tobacco Type: E-cigarettes / Vaping Cigarettes Per Day: 3-4 cigs daily x 20 years; Smoking End Date: 20 years ago; Second Hand Exposure: No; Tobacco Cessation Education Requested by Patient: No Hx Alcohol Use: Yes Alcohol type: other Hx Substance Use: No Preferred Language: Luxembourger Communication Ability: Effective Water Supervisor Required: No Beliefs That Will Affect Care: None Current Living Situation: Family Current Living Situation Comment: with mother Other Information That Helps Us Care for You: No Feels Safe at Home: Yes Safety Concerns: Feels Safe At This Time Assistive Devices: None Review of Systems Review of Systems: 10 system review negative except for stated as above Physical Exam Constitutional: WD/WN, vitals as above Cardiovascular: RRR, no murmur, no edema Gastrointestinal (Abdomen): normal bowel sounds, soft, nontender, no hepatosplenomegaly Results & Data ([facility]) Vital Signs (Past 12 Hours) Vital Signs Temp Pulse Resp BP Pulse Ox O2 Del Method 10/11/22 22:42 37.2 C 82 18 107/71 95 Room Air
[2022-10-12] MEDS: PROPRANOLOL HCL LA 80 MG CAPCR PO SCH (08:30)
[2022-10-12] MEDS: PANTOprazole 40 MG TAB PO SCH (08:30)
[2022-10-12] MEDS: PANTOprazole 40 MG in SYRINGE 0 ML IV SCH (08:31)
[2022-10-12] MEDS: INSULIN ASPART PER UNIT SC SCH ×4 (08:46→22:09)
[2022-10-12] MEDS ORDERED: ESCITALOPRAM OXALATE 20 MG TAB PO SCH (09:00)
[2022-10-12 09:35] LABS: Basophils # (auto) 0.04 K/uL (0-0.2); Basophils % (auto) 0.5 %; Eosinophils # (auto) 0.26 K/uL (0-0.50); Hematocrit (blood only) 39.3 % (37.0-47.0); Hemoglobin 12.8 g/dl (12.0-16.0); Immature Granulocytes # (auto) 0.02 K/uL (0.01-0.20); Immature Granulocytes % (auto) 0.2 %; Lymphocytes # (auto) 3.26 K/uL (1.2-3.4); Lymphocytes % (auto) 38.2 %; Mean Corpuscular Hemoglobin 27.5 pg (25.0-34.0); Mean Corpuscular Hgb Conc 32.6 g/dL (32.0-36.0); Mean Corpuscular Volume 84.5 fL (80.0-100.0); Mean Platelet Volume 9.6 fL (9.4-12.4); Monocytes # (auto) 0.67 K/uL (0.11-0.59); Monocytes % (auto) 7.9 %; Neutrophils # (auto) 4.28 K/uL (1.40-6.50); Neutrophils % (auto) 50.2 %; Platelet Count 236 K/uL (130-400); RDW Coefficient of Variation 13.9 % (11.5-14.5); RDW Standard Deviation 42.7 fL (36.4-46.3); Red Blood Count 4.65 M/uL (4.20-5.40); White Blood Count 8.53 K/ul (4.8-10.8)
[2022-10-12 09:54] LABS: Albumin Globulin Ratio 1.2 (0.9-2); Albumin Level 3.4 gm/dl (3.4-5.0); BUN Creatinine Ratio 8.7 (10-20); Calcium 8.5 mg/dl (8.5-10.1); Creatinine Clr Calc Pharmacy 105.3 ml/min; Est GFR (African American) 90.9 ml/min; Est GFR (Non-African American) 78.4 ml/min; Globulin 2.9 gm/dl (2.5-4.0); Potassium 4.1 mmol/L (3.5-5.1); Total Protein 6.3 gm/dl (6.0-8.3)
[2022-10-12 10:16] LABS: Estimated Average Glucose 140 mg/dl; Hemoglobin A1C 6.5 % (4.5-5.6)
--- NOTE | 2022-10-12 11:26 | Surgery Progress Note ---
Date of Service October 12, 2022 Assessment & Plan (1) Abdominal pain: (2) Nausea and vomiting: (3) GERD (gastroesophageal reflux disease): (4) Acute cholecystitis due to biliary calculus: Plan: pt is a 37 year-old female who was admitted to hospital for abdominal pain with nausea and vomiting, IMP: cholecystitis with cholelithiasis, plan, base on pt's H/P, U/S and GI note, pt's abdominal pain most likely relate to gallbladder, I recommend to do laparoscopic cholecystectomy, possible open or cholangiogram, D/W benefits, risks and alternatives of the surgery, the risks - infection, bleeding, injury other organs, incisional hernia, biliary leak, may need ERCP, pt understood, she agreed with surgery, she signed informed consent, I answered all questions, pre-op antibiotic, Plan 37 year-old female with a few month history of nausea/vomiting, abdominal pain with gallstones presented to ED with complaint of persistent symptoms with outpatient ultrasound equivocal for acute cholecystitis. Leukocytosis of 13K today but afebrile, t. bili, lfts, lipse wnl. Exam with tenderness in RUQ on deep palpation and epigastrium. Ddx: Symptomatic cholelithiasis, chronic cholecystitis, gastritis, GERD, gastr oparesis Plan: Discussed with patient and her mother that her symptoms could be gallbladder related however her nausea, bleching, and GERD after liquids does not necessarily point to cholecystitis or biliary colic alone, and could be upper GI etiology. Given these symptoms I would recommended admitting patient to hospital for observation and GI consultation to see if upper endoscopy is warranted. Her symptoms may not be completely resolved with cholecystectomy. Discussed possibility of obtaining a HIDA scan but unfortunately unable to do over the weekend Would closely monitor her abdominal pain and nausea while admitted and if no improvement could consider cholecystectomy Would recommend PPI for her GERD Repeat am labs IV fluids, pain management as needed, and IV zofran prn nausea U/S study gallbladder Discussed with Dr. Morales who recommended above plan and will evaluate patient separately. Admission and Anticipated Discharge Date Admission Date: October 12, 2022 Supervising Physician Co-Signing Physician Notes I have seen and examined the patient and have discussed the case with the provider above. I agree with the assessment and plan as stated. Patient is a 37-year-old obese female with epigastric and right upper quadrant pain worse with any type of food or liquids. She was recently taking amoxicillin for 10 days for an ear infection. She also reports vomiting in response to Ozempic therapy started back in August. She stopped Ozempic and has not had issues with vomiting since that time. On exam she is in no acute distress but has significant epigastric and right upper quadrant tenderness to palpation. She is morbidly obese. Lungs are clear to auscultation bilaterally. Cardiac exam is within normal limits. Work-up includes a CBC with elevated white blood cell count of 13 K, normal H&H, normal platelets. Chemistry is within normal limits. Urinalysis reveals 2+ bacteria with greater than 30 epis. test is negative. Urine culture is pending. SARS-CoV-2 is negative. An abdominal ultrasound of the right upper quadrant reveals cholelithiasis and moderate gallbladder distention. These findings were equivocal for acute cholecystitis and there was no gallbladder wall thickening. She was started on antibiotics for possible acute cholecystitis and continues with pain and nausea control and fluids for supportive care. 1. RUQ/epigastric abdominal pain possibly secondary to acute calculous cholecystitis vs other etiology 2. morbid obesity 3. DMII Plan per general surgery was to monitor her closely for symptoms of pain and nausea and if no improvement could consider cholecystectomy. HIDA scan considered but cannot be performed over the weekend. Surgery request that GI be consulted given nonspecific symptoms of nausea belching and GERD after liquids that do not necessarily point to cholecystitis or biliary colic alone and could be upper GI in etiology. [place], DO Subjective F/U abdominal pain, pt feels better, less abdominal pain, no nausea, no vomiting, no fever, I reviewed GI consult note, abdominal pain most likely relate to gallbladder, pt had U/S- IMPRESSION: 1. Cholelithiasis and moderate gallbladder distention. Sonographic Stark sign could not be assessed. Therefore, findings are equivocal for acute cholecystitis. No gallbladder wall thickening. Physical Exam Constitutional: WD/WN, vitals as above obesity Eyes: PERRL, conjunctivae normal, anicteric sclerae Neck: trachea midline, no thyromegaly Respiratory: normal respiratory effort, lungs clear to auscultation Cardiovascular: RRR, no murmur, no edema Gastrointestinal (Abdomen): mild tenderness at RUQ, no rebound pain, no distend, BS +, Musculoskeletal: no cyanosis or clubbing, extremities motor strength 5/5 Neurologic: patellar DTR's 2+ bilat, sensation intact Psychiatric: A+Ox3, euthymic affect Results & Data ([facility]) Vital Signs (Past 12 Hours) Vital Signs Temp Pulse Resp BP Pulse Ox O2 Del Method 10/12/22 07:37 36.4 C L 79 20 103/68 96 Room Air Laboratory Results Abnormal lab results 10/11/22 10/11/22 10/11/22 Range/Units 11:32 11:32 11:33 WBC 13.22 H (4.8-10.8) K/ul Neut # (Auto) 8.01 H (1.40-6.50) K/uL Lymph # (Auto) 3.97 H (1.2-3.4) K/uL [place] # (Auto) 0.85 H (0.11-0.59) K/uL BUN/Creatinine Ratio (10-20) Glucose 137 H (70-99(Fasting)) mg/dl POC Glucose (70-99) mg/dl Hemoglobin A1c (4.5-5.6) % Urine Appearance Cloudy A (Clear) Urine Protein Trace H (Negative) Urine Ketones Trace H (Negative) Ur Leukocyte Esterase Trace H (Negative) U Epithel Cells (Auto) >30 H (0-5) /lpf Urine Bacteria (Auto) 2+ H (Negative) 10/12/22 10/12/22 10/12/22 Range/Units 08:15 09:02 09:02 WBC (4.8-10.8) K/ul Neut # (Auto) (1.40-6.50) K/uL Lymph # (Auto) (1.2-3.4) K/uL [place] # (Auto) 0.67 H (0.11-0.59) K/uL BUN/Creatinine Ratio (10-20) Glucose (70-99(Fasting)) mg/dl POC Glucose 109 H (70-99) mg/dl Hemoglobin A1c 6.5 H (4.5-5.6) % Urine Appearance (Clear) Urine Protein (Negative) Urine Ketones (Negative) Ur Leukocyte Esterase (Negative) U Epithel Cells (Auto) (0-5) /lpf Urine Bacteria (Auto) (Negative) 10/12/22 Range/Units 09:02 WBC (4.8-10.8) K/ul Neut # (Auto) (1.40-6.50) K/uL Lymph # (Auto) (1.2-3.4) K/uL [place] # (Auto) (0.11-0.59) K/uL BUN/Creatinine Ratio 8.7 L (10-20) Glucose 125 H (70-99(Fasting)) mg/dl POC Glucose (70-99) mg/dl Hemoglobin A1c (4.5-5.6) % Urine Appearance (Clear) Urine Protein (Negative) Urine Ketones (Negative) Ur Leukocyte Esterase (Negative) U Epithel Cells (Auto) (0-5) /lpf Urine Bacteria (Auto) (Negative) Diagnostic Findings IMPRESSION: U/s 10/11/2022 1. Cholelithiasis and moderate gallbladder distention. Sonographic Stark sign could not be assessed. Therefore, findings are equivocal for acute cholecystitis. No gallbladder wall thickening.
--- NOTE | 2022-10-12 11:33 | History & Physical Bridge Note ---
Date of Service October 12, 2022 History & Physical Bridge Note I have examined the patient, reviewed the History & Physical and in the interval since the performance of the History & Physical I have noted the following changes of clinical significance: no changes noted Supervising Physician Co-Signing Physician Notes I have seen and examined the patient and have discussed the case with the provider above. I agree with the assessment and plan as stated. Patient is a 37-year-old obese female with epigastric and right upper quadrant pain worse with any type of food or liquids. She was recently taking amoxicillin for 10 days for an ear infection. She also reports vomiting in response to Ozempic therapy started back in August. She stopped Ozempic and has not had issues with vomiting since that time. On exam she is in no acute distress but has significant epigastric and right upper quadrant tenderness to palpation. She is morbidly obese. Lungs are clear to auscultation bilaterally. Cardiac exam is within normal limits. Work-up includes a CBC with elevated white blood cell count of 13 K, normal H&H, normal platelets. Chemistry is within normal limits. Urinalysis reveals 2+ bacteria with greater than 30 epis. test is negative. Urine culture is pending. SARS-CoV-2 is negative. An abdominal ultrasound of the right upper quadrant reveals cholelithiasis and moderate gallbladder distention. These findings were equivocal for acute cholecystitis and there was no gallbladder wall thickening. She was started on antibiotics for possible acute cholecystitis and continues with pain and nausea control and fluids for supportive care. 1. RUQ/epigastric abdominal pain possibly secondary to acute calculous cholecystitis vs other etiology 2. morbid obesity 3. DMII Plan per general surgery was to monitor her closely for symptoms of pain and nausea and if no improvement could consider cholecystectomy. HIDA scan considered but cannot be performed over the weekend. Surgery request that GI be consulted given nonspecific symptoms of nausea belching and GERD after liquids that do not necessarily point to cholecystitis or biliary colic alone and could be upper GI in etiology. DO Micheal
--- NOTE | 2022-10-12 11:38 | Hospitalist Progress Note ---
Date of Service October 12, 2022 Assessment & Plan (1) Biliary colic: Plan: lap jose e planned today. Ongoing abx per surgery based on findings. Studies were equivocal for cholecystitis. (2) Abdominal pain: Plan: likely related to biliary colic. Plan for lap jose e today as above. (3) Nausea and vomiting: Plan: plan as above. (4) GERD (gastroesophageal reflux disease): Plan: cont PPI (5) Diabetes mellitus, type 2: Plan: - Place on ISS with accuchecks achs -off ozempic 2/2 nausea and side effects. (6) Hyperlipidemia: Plan: chronic, stable. Cont Lipitor (7) Hypertension: Plan: -chronic, stable. No propranolol this am because she was NPO. Cont this daily. (8) Depression: Plan: - chronic, stable. Continue lexapro and wellbutrin. I confirmed with her today that she takes both. DVT ppx: scd, ambulatory CODE: FULL Dispo: to home when cleared by surgery. Thank you for involving us in the care of Miss Marcos. Please do not hesitate to call with questions or concerns. At this time medicine service will follow along. Lay Burton DO [facility] [address] Hospitalist Admission and Anticipated Discharge Date Admission Date: October 12, 2022 Subjective 37 yo F admitted for biliary colic She is being taken to OR today for acute calculous cholecystitis She has been on abx since admission and remains fever -free She reports nausea after broth overnight and wasn't able to sleep well Mom at bedside and reports a h/o biliary colic in herself causing her to get GB removed also. Review of Systems Review of Systems: All systems were reviewed and negative except as indicated on subjective above. Physical Exam Physical Exam: CONSTITUTIONAL: morbid obese, vitals as above, generally well- appearing NAD EYES: normal conjunctivae, no scleral icterus ENT: external ear and nose normal,MMm NECK: trachea midline RESPIRATORY: clear to auscultation bilaterally, no crackles, rales or wheezes, normal respiratory effort CARDIOVASCULAR: regular rate and rhythm, S1 and 2 heard without murmurs, gallops or rubs, no JVD, no peripheral edema CHEST: inspection of chest was normal GASTROINTESTINAL: soft, nontender, ND, no guarding MUSCULOSKELETAL: strength 5/5 throughout, head is normocephalic and atraumatic SKIN: warm and dry NEUROLOGIC: CN 2-12 grossly intact, no sensory deficit, normal cognition, normal speech, no tremor PSYCHIATRIC: alert cooperative and oriented to person, place and time. Results & Data Results & Data ([facility]) Vital Signs (Past 12 Hours) Vital Signs Temp Pulse Resp BP Pulse Ox O2 Del Method 10/12/22 07:37 36.4 C L 79 20 103/68 96 Room Air Laboratory Results Short CBC 10/12/22 Range/Units 09:02 WBC 8.53 (4.8-10.8) K/ul Hgb 12.8 (12.0-16.0) g/dl Hct 39.3 (37.0-47.0) % Plt Count 236 (130-400) K/uL BMP 10/12/22 09:02 Sodium 140 Potassium 4.1 Chloride 107 Carbon Dioxide 29 BUN 8 Creatinine 0.92 Glucose 125 H Calcium 8.5 Liver Function 10/12/22 Range/Units 09:02 Total Bilirubin 1.0 D (0.2-1.0) mg/dl AST 14 (13-39) U/L ALT 13 (7-52) U/L Alkaline Phosphatase 64 (34-104) U/L Albumin 3.4 (3.4-5.0) gm/dl Medications Administered Current Inpatient Medications Atorvastatin Calcium (Atorvastatin 10 Mg Tab) 10 mg PO QPM STEPHIE Stop: 11/10/22 20:59 Last Admin: 10/11/22 21:40 Dose: 10 mg Atropine Sulfate (Atropine Sulfate 0.1 Mg/Ml 10ml Syr) 0.5 mg IV Q1M PRN PRN Reason: PACU Use-HR<40 &/or Bradycardi Stop: 10/12/22 23:34 Bupropion HCl (Bupropion Xl 150 Mg Tabcr) 150 mg PO QPM STEPHIE Stop: 11/10/22 20:59 Last Admin: 10/11/22 21:32 Dose: 150 mg Dextrose (Dextrose 50% 50 Ml Syringe) 25 - 50 ml IV UD PRN; Protocol PRN Reason: Hypoglycemia Protocol Stop: 11/10/22 20:43 Ephedrine Sulfate (Ephedrine Sulfate 50 Mg/Ml Amp) 5 mg IV Q5M PRN PRN Reason: PACU Use Only-SBP<90 mmHg Stop: 10/12/22 23:34 Escitalopram Oxalate (Escitalopram Oxalate 20 Mg Tab) 20 mg PO HS STEPHIE Stop: 11/10/22 22:14 Last Admin: 10/11/22 22:13 Dose: Not Given Fentanyl Citrate (Fentanyl Citrate 100 Mcg/2 Ml Vial) 25 mcg IV Q5M PRN PRN Reason: PACU Use Only-Pain Stop: 10/12/22 23:34 Flumazenil (Flumazenil 0.1 Mg/1 Ml 10 Ml Vial) 0.2 mg IV Q2M PRN PRN Reason: PACU Use Only-Benzo Reversal Stop: 10/12/22 23:35 Glucagon (Glucagon For Inj 1 Mg Vial) 1 mg SQ UD PRN; Protocol PRN Reason: Hypoglycemia Protocol Stop: 11/10/22 20:43 Glucose (Glucose 40% Gel 15 Gm Tube) 15 - 30 gm PO UD PRN; Protocol PRN Reason: Hypoglycemia Protocol Stop: 11/10/22 20:43 Glucose (Glucose 10 Tab/Tube) 4 - 8 tab PO UD PRN; Protocol PRN Reason: Hypoglycemia Treatment Stop: 11/10/22 20:43 Hydromorphone HCl (Hydromorphone Inj 0.5 Mg/0.5 Ml Syr) 0.25 mg IV Q3H PRN PRN Reason: Pain (1,2,3,4,5) & Pre PT Stop: 10/25/22 17:00 Hydromorphone HCl (Hydromorphone Inj 0.5 Mg/0.5 Ml Syr) 0.5 mg IV Q3H PRN PRN Reason: Pain (6,7,8,9,10) Stop: 10/25/22 17:00 Hydromorphone HCl (Hydromorphone Inj 1 Mg/Ml Syringe) 0.25 mg IV Q5M PRN PRN Reason: PACU Use Only-Pain Stop: 10/12/22 23:35 Sodium Chloride (Nss 1000ml) 1,000 mls @ 125 mls/hr IV .Q8H STEPHIE Stop: 11/10/22 17:00 Last Infusion: 10/12/22 13:58 Dose: 125 mls/hr Piperacillin Sod/Tazobactam (Sod 3.375 gm/ Dextrose) 115 mls @ 28.75 mls/hr IV Q8H STEPHIE; Protocol Stop: 10/13/22 21:59 Last Admin: 10/12/22 14:02 Dose: 28.8 mls/hr Pantoprazole Sodium 40 mg/ (Syringe) 10 mls @ 5 mls/min IV BID [facility] Stop: 11/10/22 20:59 Last Admin: 10/12/22 08:31 Dose: 5 mls/min Promethazine HCl 12.5 mg/ (Sodium Chloride) 50.5 mls @ 204 mls/hr IV ONCE PRN PRN Reason: PACU Use Only-Nausea/Vomiting Stop: 10/12/22 23:35 Insulin Aspart (Insulin Aspart Per Unit) 0 units SC ACHS [facility] Stop: 11/10/22 20:59 Last Admin: 10/12/22 16:26 Dose: Not Given Labetalol HCl (Labetalol Hcl Iv 5 Mg/Ml 20ml) 5 mg IV Q5M PRN PRN Reason: PACU Use-SBP>160 or DBP>100 Stop: 10/12/22 23:35 Miscellaneous (Carbohydrates For Hypoglycemia ) 15 - 30 gm PO UD PRN PRN Reason: Hypoglycemia Protocol Stop: 11/10/22 20:43 Naloxone HCl (Naloxone Hcl 0.4 Mg/1 Ml Vial/Carp) 0.2 mg IV Q2M PRN PRN Reason: PACU Use Only-Opiate Reversal Stop: 10/12/22 23:35 Ondansetron HCl (Ondansetron Inj 2 Mg/Ml 2 Ml Vial) 4 mg IV Q4H PRN PRN Reason: Nausea And Vomiting Stop: 11/10/22 17:00 Last Admin: 10/11/22 18:22 Dose: 4 mg Ondansetron HCl (Ondansetron Inj 2 Mg/Ml 2 Ml Vial) 4 mg IV ONCE PRN PRN Reason: PACU Use Only-Nausea/Vomiting Stop: 10/12/22 23:35 Pantoprazole Sodium (Pantoprazole 40 Mg Tab) 40 mg PO DAILY [facility] Stop: 11/11/22 08:59 Last Admin: 10/12/22 08:30 Dose: Not Given Propranolol HCl (Propranolol Hcl La 80 Mg Capcr) 160 mg PO DAILY [facility] Stop: 11/11/22 08:59 Last Admin: 10/12/22 08:30 Dose: Not Given
[2022-10-12] MEDS ORDERED: LIDOCAINE 1% LOCAL 20 ML VIAL ONE (12:25)
[2022-10-12] MEDS ORDERED: BUPIVACAINE 0.5 % 5 MG/1 ML MPF 30ML VIAL ONE (12:25)
[2022-10-12] MEDS ORDERED: BACITRACIN OINT 15 GM TUBE ONE (12:26)
--- NOTE | 2022-10-12 12:29 | Anesthesiology Consultation ---
Date of Service October 12, 2022 Assessment & Plan Chart Review Chart Review: Acceptable Risk for Surgery and Patient NOT seen in Pre Admission Testing Consults Requested none ASA ASA3 Proposed Anesthesia Anesthesia Type: General History Surgery Operation Date: 10/12/22 11:05 Proposed Procedures p Laparoscopic Cholecystectomy - Rayo Morales MD Height/Weight Height: 5 ft 5 in Weight: 117.7 kg Allergies Allergy/AdvReac Type Severity Reaction Status Date / Time No Known Allergies Allergy Verified 08/20/19 08:23 Medications Home Medications Medication Instructions Recorded Confirmed Last Taken atorvastatin 10 mg tablet 10 mg PO QPM 08/12/19 10/11/22 08/19/19 bupropion HCl 150 mg 24 hr tablet, 150 mg PO QPM 08/12/19 10/11/22 08/19/19 extended release medroxyprogesterone 150 mg/mL 150 mg IM Q90D 08/12/19 10/11/22 08/19/19 intramuscular suspension (Depo-Provera) escitalopram oxalate 20 mg tablet 20 mg PO DAILY 10/11/22 10/11/22 Unknown metformin 1,000 mg tablet 1,000 mg PO BID 10/11/22 10/11/22 Unknown omeprazole 40 mg capsule,delayed 40 mg PO DAILY 10/11/22 10/11/22 Unknown release propranolol 160 mg capsule,24 160 mg PO DAILY 10/11/22 10/11/22 Unknown hr,extended release Active Medications Generic Name Dose Route Start Last Admin Trade Name Freq PRN Reason Stop Dose Admin Atorvastatin Calcium 10 mg 10/11/22 21:00 10/11/22 21:40 Atorvastatin 10 Mg Tab PO 11/10/22 20:59 10 mg QPM STEPHIE Administration Bupropion HCl 150 mg 10/11/22 21:00 10/11/22 21:32 Bupropion Xl 150 Mg Tabcr PO 11/10/22 20:59 150 mg QPM STEPHIE Administration Escitalopram Oxalate 20 mg 10/11/22 22:15 10/11/22 22:13 Escitalopram Oxalate 20 Mg Tab PO 11/10/22 22:14 Not Given HS STEPHIE Sodium Chloride 1,000 mls @ 125 mls/hr 10/11/22 17:01 10/12/22 05:30 Nss 1000ml IV 11/10/22 17:00 125 mls/hr .Q8H STEPHIE Administration Piperacillin Sod/Tazobactam 115 mls @ 28.75 mls/hr 10/11/22 22:00 10/12/22 09:30 Sod 3.375 gm/ Dextrose IV 10/13/22 21:59 Infused Q8H [facility] Infusion Protocol Pantoprazole Sodium 40 mg/ 10 mls @ 5 mls/min 10/11/22 21:00 10/12/22 08:31 Syringe IV 11/10/22 20:59 5 mls/min BID STEPHIE Administration Insulin Aspart 0 units 10/11/22 21:00 10/12/22 08:46 Insulin Aspart Per Unit SC 11/10/22 20:59 Not Given ACHS STEPHIE Ondansetron HCl 4 mg 10/11/22 17:01 10/11/22 18:22 Ondansetron Inj 2 Mg/Ml 2 Ml Vial IV 11/10/22 17:00 4 mg Q4H PRN Administration Nausea And Vomiting Pantoprazole Sodium 40 mg 10/12/22 09:00 10/12/22 08:30 Pantoprazole 40 Mg Tab PO 11/11/22 08:59 Not Given DAILY STEPHIE Propranolol HCl 160 mg 10/12/22 09:00 10/12/22 08:30 Propranolol Hcl La 80 Mg Capcr PO 11/11/22 08:59 Not Given DAILY STEPHIE Past Medical History Medical History Asthma no inhaler, well controlled Depression Diabetes mellitus, type 2 NIDDM GERD (gastroesophageal reflux disease) OTC medications PRN Hyperlipidemia Hypertension Migraine morbid obesity vapes nicotine multiple times/day Exercise / Class Metabolic Activity II 4-5 Yardwork/Stairs/Walk up hill Past Family History Family History Uncle FHx: prostate cancer Family history of diabetes mellitus Mother Family history of diabetes mellitus Aunt Family history of diabetes mellitus Grandmother (Paternal) Family history of diabetes mellitus Past Surgical History Surgical History H/O vaginal surgery Posterior Repair History of colonoscopy Past Anesthesia History No Hx of Anesthesia Complications and No Family Hx of Anesthesia Complications History of PONV No Hx of PONV and No Hx of Motion Sickness Social History Smoking Status: Former smoker tobacco type: cigarettes and e-cigarettes Smoking cigarettes per day: 3-4 cigs daily x 20 years Smoking End Date: 20 years ago Hx Alcohol Use: Yes Alcohol type: other alcohol intake frequency: holidays/special occasions only Hx Substance Use: No substance use type: does not use Physical Exam Vital Signs Last Vital Signs Temp 36.4 C L 10/12/22 07:37 Pulse 79 10/12/22 07:37 Resp 20 10/12/22 07:37 BP 103/68 10/12/22 07:37 Pulse Ox 96 10/12/22 07:37 O2 Del Method 10/12/22 07:37 Testing Laboratory Results 10/12/22 09:02 10/12/22 09:02 Hemoglobin A1c 6.5 % (4.5-5.6) H 10/12/22 09:02 Urine Color Yellow 10/11/22 11:33 Urine Appearance Cloudy (Clear) A 10/11/22 11:33 Urine pH 7.5 (4.5-7.5) 10/11/22 11:33 Ur Specific Wells 1.025 (1.000-1.030) 10/11/22 11:33 Urine Protein Trace (Negative) H 10/11/22 11:33 Urine Glucose (UA) Negative (Negative) 10/11/22 11:33 Urine Ketones Trace (Negative) H 10/11/22 11:33 Urine Nitrite Negative (Negative) 10/11/22 11:33 Ur Leukocyte Esterase Trace (Negative) H 10/11/22 11:33 Urine WBC (Auto) 1-5 /hpf (0-5) 10/11/22 11:33 Urine RBC (Auto) 0-4 /hpf (0-4) 10/11/22 11:33 U Hyaline Cast (Auto) 1-5 /lpf (0-5) 10/11/22 11:33 U Epithel Cells (Auto) >30 /lpf (0-5) H 10/11/22 11:33 Urine Bacteria (Auto) 2+ (Negative) H 10/11/22 11:33 Urine Test Negative (Negative) 10/11/22 11:33 10/11/22 11:33 Urine Culture - Final Urine,Clean Catch Three types of organisms present, all moderate counts. Repeat collection recommended. No further identifications or sensitivities to follow. 10/12/22 08:15 POC Glucose 109 H 10/11/22 11:33 Urine Test Negative Electrocardiogram Date: 06/19/21 Findings: + NSR @ (@ 86)
[2022-10-12] MEDS ORDERED: SUCCINYLCHOLINE CHLORIDE 20 MG/ML 10 ML VIAL IV ONE ×2 (14:01→16:25)
[2022-10-12] MEDS ORDERED: LIDOCAINE 2% MPF LOCAL 5 ML VIAL INFIL ONE (14:01)
[2022-10-12] MEDS ORDERED: PROPOFOL IV EMULSION 10 MG/ML 20 ML VIAL IV ONE ×2 (14:01→16:24)
[2022-10-12] MEDS ORDERED: fentaNYL citrate 100 MCG/2 ML VIAL IV PRN (15:34)
[2022-10-12] MEDS ORDERED: NALOXONE HCL 0.4 MG/1 ML VIAL/CARP IV PRN (15:34)
[2022-10-12] MEDS ORDERED: ONDANSETRON INJ 2 MG/ML 2 ML VIAL IV PRN (15:34)
[2022-10-12] MEDS ORDERED: LABETALOL HCL IV 5 MG/ML 20ML IV PRN (15:34)
[2022-10-12] MEDS ORDERED: ePHEDrine sulfate 50 MG/ML AMP IV PRN (15:34)
[2022-10-12] MEDS ORDERED: HYDROmorphone INJ 1 MG/ML SYRINGE IV PRN (15:34)
[2022-10-12] MEDS ORDERED: PROMETHAZINE HCL 12.5 MG in SODIUM CHLORIDE 0.9% 50 ML IV PRN (15:34)
[2022-10-12] MEDS ORDERED: ATROPINE SULFATE 0.1 MG/ML 10ML SYR IV PRN (15:34)
[2022-10-12] MEDS ORDERED: FLUMAZENIL 0.1 MG/1 ML 10 ML VIAL IV PRN (15:34)
[2022-10-12] MEDS ORDERED: MIDAZOLAM HCL 1 MG/ML 2ML VIAL ONE (15:43)
[2022-10-12] MEDS ORDERED: fentaNYL citrate 100 MCG/2 ML VIAL ONE ×3 (15:43→16:25)
[2022-10-12] MEDS ORDERED: ONDANSETRON INJ 2 MG/ML 2 ML VIAL ONE (16:24)
[2022-10-12] MEDS ORDERED: DEXAMETHASONE SOD INJ 4 MG/ML VIAL ONE (16:24)
[2022-10-12] MEDS ORDERED: CISATRACURIUM BESYLATE IV SOLN 2 MG/ML 10 ML VIAL IV ONE (16:25)
[2022-10-12] MEDS ORDERED: NEOSTIGMINE METHYLSULFATE 1 MG/ML 10ML VIAL ONE (17:19)
[2022-10-12] MEDS ORDERED: GLYCOPYRROLATE 0.2 MG/ML VIAL ONE (17:19)
--- NOTE | 2022-10-12 17:37 | Post Operative Brief Note ---
Immediate Post Op Note v1 Date of Surgery October 12, 2022 Pre & Post Diagnosis Operation Date: 10/12/22 11:05 Pre-Op Diagnosis: NAUSEA AND VOMITING, ABD PAIN, GALLSTONES Post-Op Diagnosis: NAUSEA AND VOMITING, ABD PAIN, GALLSTONES, acute cholecystitis I identified the patient and participated in the time-out.: Yes Procedure Operation Date: 10/12/22 11:05 Actual Procedures p Laparoscopic Cholecystectomy(Not Applicable) - Rayo Morales MD Surgeon Rayo Morales MD Motor Driver regional vice president surgical sales Estimated Blood Loss 10 Findings Consistent with Post-Op Diagnosis Fluids 1300ml Specimens gallbladder Anesthesia Type General Complications none Disposition Accompanied Patient To Recovery: Yes
--- NOTE | 2022-10-12 18:16 | Anesthesiology Progress Note ---
Date of Service October 12, 2022 Anesthesia Post Procedure Vital Signs Vital Signs: Temp Pulse Pulse Resp BP Pulse Ox O2 Del Method 10/12/22 18:05 90 14 158/93 H 14 L Room Air 10/12/22 17:55 86 20 136/76 97 Oxymask 10/12/22 17:46 36.4 C L 81 20 138/83 97 Oxymask 10/12/22 15:00 36.4 C L 73 18 125/80 97 Room Air 10/12/22 07:37 36.4 C L 79 20 103/68 96 Room Air 10/11/22 22:42 37.2 C 82 18 107/71 95 Room Air O2 Flow Rate 10/12/22 18:05 10/12/22 17:55 4 10/12/22 17:46 7 10/12/22 15:00 10/12/22 07:37 10/11/22 22:42 Pain Intensity Right Upper Abdomen: Pain Intensity: 9 Transfer of Care Handoff Completed per policy Notes Mental Status: alert / awake / arousable Patient Amnestic to Procedure: Yes Nausea / Vomiting: adequately controlled Pain: adequately controlled Airway Patency, RR, SpO2: stable & adequate BP & HR: stable & adequate Hydration State: stable & adequate Anesthetic Complications: no major complications apparent
[2022-10-12] MEDS: buPROPion XL 150 MG TABCR PO SCH (20:47)
[2022-10-12] MEDS: ESCITALOPRAM OXALATE 20 MG TAB PO SCH (20:48)
[2022-10-12] MEDS: ATORVASTATIN 10 MG TAB PO SCH (20:48)
[2022-10-12] MEDS: HYDROmorphone INJ 0.5 MG/0.5 ML SYR IV PRN (20:49)
--- NOTE | 2022-10-12 22:02 | Operative Report (OR) ---
DATE OF PROCEDURE: 10/12/2022. PREOPERATIVE DIAGNOSES: Acute cholecystitis, cholelithiasis. POSTOPERATIVE DIAGNOSES: Acute cholecystitis, cholelithiasis. OPERATION: Laparoscopic cholecystectomy. SURGEON: Rayo Morales MD. ANESTHESIA: General. ESTIMATED BLOOD LOSS: About 10 mL. FINDINGS: Acute cholecystitis, cholelithiasis. COMPLICATIONS: None. INDICATIONS FOR THE PROCEDURE: This is a 37-year-old female who was admitted to the hospital for abdominal pain, nausea and vomiting and the patient had ultrasound diagnosis of acute cholecystitis with cholelithiasis. I recommended to do laparoscopic cholecystectomy, possible open, possible cholangiogram. I did talk to the patient about the benefit, risk, alternate procedure. I indicated the risks may include, but not limited to such as bleeding, infection, injury to other organs, bile leak, may need ERCP, remaining common bile duct stone, incisional hernia. The patient understands. She signed informed consent and I answered all questions. DETAILS OF PROCEDURE: After we identified the patient and verified the procedure, we brought the patient to the OR, put the patient in the supine position on the OR table. The patient received SCD on bilateral legs to preve nt DVT. Also, the patient received 3.375 grams Zosyn IV for prophylactic antibiotic. The patient re ceived general anesthesia without difficulty. The abdomen was prepped and draped in routine sterile fashion. After timeout, I injected the local anesthesia by using 1% lidocaine mixed with 0.5% Marcai ne just above the umbilicus, then I made a small incision just above umbilicus, opened fascia, opened peritoneum. Under direct vision, put a Henrik trocar in, connected to CO2 to create pneumoperitoneu m, flow rate at 6 liters per minute, pressure not more than 14 mmHg. Once we got a nice pneumoperito neum, we put a camera in, looked around the abdomen, it shows normal finding on the liver; however, t he gallbladder has significant distention with gallbladder wall thickening, edema, confirmed diagnosi s of acute cholecystitis. Once we confirmed the diagnosis, we put another two 5 mm trocars on the [facility] upper quadrant, one is 12 trocar on the epigastric area. Once all trocars in, we used the large needle to decompress the gallbladder first. Then, we used the grasper to hold the base of gallbladde r, put in the direction to the diaphragm, another grasper to hold the pouch of gallbladder, put it la teral to explore the triangle of Calot. The cystic duct was identified and mobilized. I put two 10 mm metal clips on the proximal cystic duct, one on the distal cystic duct, then used a scissor for tr ansection of cystic duct; rechecked, no bile leak. The cystic artery was identified and mobilized. I put two 5 mm metal clips on the proximal cystic artery, one on the distal cystic artery, then used a scissor for transection of cystic artery; rechecked, no active bleeding. Then, we used the Bovie t o take down gallbladder from liver bed; rechecked, no active bleeding, no bile leak from liver bed. Then, we removed gallbladder through the catch bag. Then, we reinserted the Henrik trocar in, connec roseann to CO2 to create pneumoperitoneum, again looked around the abdomen, no active bleeding, no bile l eak from liver bed. Then, we removed all trocars under direct vision. No active bleeding from the t rocar site. Pneumoperitoneum was released. Then, I closed the umbilical incision fascial layer by u sing 0 Vicryl [id number] x2, closed subcutaneous layer by using 2-0 Vicryl interruptedly, closed skin by using 4-0 Vicryl continuous running, closed the epigastric incision fascial layer by using 0 Vicryl [id number] x2, closed subcutaneous layer by using 2-0 Vicryl interruptedly, closed skin by using 4-0 Vicryl interruptedly, closed another two 5 mm trocar site of skin only by using 4-0 Vicr yl. Then, we put the dressing on. The patient tolerated the procedure well. All instrument, needle and sponge counts were correct x2 at the end of the case. The patient was transferred to [facility] in stable condition. The specimen was sent to pathology. After the procedure, I did talk to the patient's family member about the OR finding and the procedure we did, they understand. Job ID: [id number]
[2022-10-12] MEDS: oxyCODONE/ACETAMINOPHEN 5mg/325mg TAB PO PRN (22:27)
[2022-10-13] MEDS: HYDROmorphone INJ 0.5 MG/0.5 ML SYR IV PRN ×2 (00:17→10:45)
[2022-10-13] MEDS: SODIUM CHLORIDE 0.9% 1000ML 1,000 ML IV SCH ×2 (02:07→09:47)
[2022-10-13] MEDS: oxyCODONE/ACETAMINOPHEN 5mg/325mg TAB PO PRN ×2 (02:09→07:30)
[2022-10-13] MEDS: PIPERACILLIN/TAZOBACTAM 3.375 GM in DEXTROSE 5% 100 ML IV SCH ×2 (05:49→13:22)
[2022-10-13] MEDS ORDERED: metFORMIN HCL 500 MG TAB PO SCH (08:00)
[2022-10-13 08:13] LABS: Basophils # (auto) 0.03 K/uL (0-0.2); Basophils % (auto) 0.3 %; Eosinophils # (auto) 0.02 K/uL (0-0.50); Eosinophils % (auto) 0.2 %; Hematocrit (blood only) 40.1 % (37.0-47.0); Hemoglobin 13.4 g/dl (12.0-16.0); Immature Granulocytes # (auto) 0.05 K/uL (0.01-0.20); Immature Granulocytes % (auto) 0.4 %; Lymphocytes # (auto) 2.13 K/uL (1.2-3.4); Lymphocytes % (auto) 18.9 %; Mean Corpuscular Hemoglobin 27.7 pg (25.0-34.0); Mean Corpuscular Hgb Conc 33.4 g/dL (32.0-36.0); Mean Corpuscular Volume 82.9 fL (80.0-100.0); Mean Platelet Volume 9.7 fL (9.4-12.4); Monocytes % (auto) 5.3 %; Neutrophils # (auto) 8.42 K/uL (1.40-6.50); Neutrophils % (auto) 74.9 %; Platelet Count 265 K/uL (130-400); RDW Coefficient of Variation 13.2 % (11.5-14.5); RDW Standard Deviation 39.8 fL (36.4-46.3); Red Blood Count 4.84 M/uL (4.20-5.40); White Blood Count 11.25 K/ul (4.8-10.8)
[2022-10-13 08:29] LABS: Albumin Globulin Ratio 1.2 (0.9-2); Albumin Level 3.6 gm/dl (3.4-5.0); BUN Creatinine Ratio 9.6 (10-20); Bilirubin,Total 0.8 mg/dl (0.2-1.0); Calcium 8.7 mg/dl (8.5-10.1); Creatinine Clr Calc Pharmacy 132.8 ml/min; Est GFR (African American) 120.2 ml/min; Est GFR (Non-African American) 103.7 ml/min; Potassium 3.9 mmol/L (3.5-5.1); Total Protein 6.6 gm/dl (6.0-8.3)
[2022-10-13] MEDS: PANTOprazole 40 MG TAB PO SCH (08:51)
[2022-10-13] MEDS: PROPRANOLOL HCL LA 80 MG CAPCR PO SCH (08:51)
[2022-10-13] MEDS: INSULIN ASPART PER UNIT SC SCH ×2 (08:57→13:18)
--- NOTE | 2022-10-13 10:42 | Surgery Progress Note ---
Date of Service October 13, 2022 Assessment & Plan (1) Abdominal pain: (2) Nausea and vomiting: (3) GERD (gastroesophageal reflux disease): (4) Acute cholecystitis due to biliary calculus: Plan: pt is a 37 year-old female who was admitted to hospital for abdominal pain with nausea and vomiting, IMP: cholecystitis with cholelithiasis, plan, base on pt's H/P, U/S and GI note, pt's abdominal pain most likely relate to gallbladder, I recommend to do laparoscopic cholecystectomy, possible open or cholangiogram, D/W benefits, risks and alternatives of the surgery, the risks - infection, bleeding, injury other organs, incisional hernia, biliary leak, may need ERCP, pt understood, she agreed with surgery, she signed informed consent, I answered all questions, pre-op antibiotic, 10/13/2022 10:[address] segura F/U S/P kiley dorantes, pod 1 doing fine, pt wants to go home yo, post-op care instruction was given, F/U 2 weeks, Plan 37 year-old female with a few month history of nausea/vomiting, abdominal pain with gallstones presented to ED with complaint of persistent symptoms with outpatient ultrasound equivocal for acute cholecystitis. Leukocytosis of 13K today but afebrile, t. bili, lfts, lipse wnl. Exam with tenderness in RUQ on deep palpation and epigastrium. Ddx: Symptomatic cholelithiasis, chronic cholecystitis, gastritis, GERD, gastroparesis Plan: Discussed with patient and her mother that her symptoms could be gallbladder related however her nausea, bleching, and GERD after liquids does not necessarily point to cholecystitis or biliary colic alone, and could be upper GI etiology. Given these symptoms I would recommended admitting patient to hospital for observation and GI consultation to see if upper endoscopy is warranted. Her symptoms may not be completely resolved with cholecystectomy. Discussed possibility of obtaining a HIDA scan but unfortunately unable to do over the weekend Would closely monitor her abdominal pain and nausea while admitted and if no im provement could consider cholecystectomy Would recommend PPI for her GERD Repeat am labs IV fluids, pain management as needed, and IV zofran prn nausea U/S study gallbladder Discussed with Dr. Segura who recommended above plan and will evaluate patient separately. Admission and Anticipated Discharge Date Admission Date: October 12, 2022 Supervising Physician Co-Signing Physician Notes I have seen and examined the patient and have discussed the case with the provider above. I agree with the assessment and plan as stated. Patient is a 37-year-old obese female with epigastric and right upper quadrant pain worse with any type of food or liquids. She was recently taking amoxicillin for 10 days for an ear infection. She also reports vomiting in response to Ozempic therapy started back in August. She stopped Ozempic and has not had issues with vomiting since that time. On exam she is in no acute distress but has significant epigastric and right upper quadrant tenderness to palpation. She is morbidly obese. Lungs are clear to auscultation bilaterally. Cardiac exam is within normal limits. Work-up includes a CBC with elevated white blood cell count of 13 K, normal H&H, normal platelets. Chemistry is within normal limits. Urinalysis reveals 2+ bacteria with greater than 30 epis. test is negative. Urine culture is pending. SARS-CoV-2 is negative. An abdominal ultrasound of the right upper quadrant reveals cholelithiasis and moderate gallbladder distention. These findings were equivocal for acute cholecystitis and there was no gallbladder wall thickening. She was started on antibiotics for possible acute cholecystitis and continues with pain and nausea control and fluids for supportive care. 1. RUQ/epigastric abdominal pain possibly secondary to acute calculous cholecystitis vs other etiology 2. morbid obesity 3. DMII Plan per general surgery was to monitor her closely for symptoms of pain and nausea and if no improvement could consider cholecystectomy. HIDA scan considered but cannot be performed over the weekend. Surgery request that GI be consulted given nonspecific symptoms of nausea belching and GERD after liquids that do not necessarily point to cholecystitis or biliary colic alone and could be upper GI in etiology. DO Maia Burton 37 yo F admitted for biliary colic She is being taken to OR today for acute calculous cholecystitis She has been on abx since admission and remains fever -free She reports nausea after broth overnight and wasn't able to sleep well Mom at bedside and reports a h/o biliary colic in herself causing her to get GB removed also. 10/13/2022 10:37 AM, Dr. Segura F/U S/P lap jose e, pod 1 pt is doing fine, no significant abdominal pain, no nausea, no vomiting, no fever, tolerated diet, Physical Exam Constitutional: WD/WN, vitals as above Eyes: PERRL, conjunctivae normal, anicteric sclerae Neck: trachea midline, no thyromegaly Respiratory: normal respiratory effort, lungs clear to auscultation Cardiovascular: RRR, no murmur, no edema Gastrointestinal (Abdomen): soft, mild tenderness at incision sites, no rebound pain, no distend, BS +, Musculoskeletal: no cyanosis or clubbing, extremities motor strength 5/5 Neurologic: patellar DTR's 2+ bilat, sensation intact Psychiatric: A+Ox3, euthymic affect Results & Data ([facility]) Vital Signs (Past 12 Hours) Vital Signs Temp Pulse Resp BP Pulse Ox O2 Del Method 10/13/22 08:11 36.3 C L 66 18 124/78 97 Room Air 10/13/22 03:00 36.5 C 83 18 127/81 96 Room Air 10/12/22 22:54 36.7 C 98 H 20 142/76 H 98 Room Air Laboratory Results Abnormal lab results 10/12/22 10/12/22 10/12/22 Range/Units 12:24 18:20 20:19 WBC (4.8-10.8) K/ul Neut # (Auto) (1.40-6.50) K/uL Gladwin # (Auto) (0.11-0.59) K/uL BUN/Creatinine Ratio (10-20) Glucose (70-99(Fasting)) mg/dl POC Glucose 111 H 128 H 132 H (70-99) mg/dl 10/13/22 10/13/22 10/13/22 Range/Units 07:49 07:49 08:25 WBC 11.25 H (4.8-10.8) K/ul Neut # (Auto) 8.42 H (1.40-6.50) K/uL Gladwin # (Auto) 0.60 H (0.11-0.59) K/uL BUN/Creatinine Ratio 9.6 L (10-20) Glucose 137 H (70-99(Fasting)) mg/dl POC Glucose 134 H (70-99) mg/dl
--- NOTE | 2022-10-13 14:30 | Hospitalist Progress Note ---
Date of Service October 13, 2022 Assessment & Plan (1) Biliary colic: Plan: lap jose e, postop day #1. Abx per surgery. Imaging studies were equivocal for cholecystitis. Continue postoperative care, follow-up, activity restrictions and wound care per surgery. (2) Abdominal pain: Plan: Improved postoperatively. (3) Nausea and vomiting: Plan: Appears improved postoperatively. (4) GERD (gastroesophageal reflux disease): Plan: cont PPI per home regimen. Encouraged to use Tums for any breakthrough heartburn. (5) Diabetes mellitus, type 2: Plan: - Place on ISS with accuchecks achs -off ozempic 2/2 nausea and side effects. Okay to resume metformin after discharge. (6) Hyperlipidemia: Plan: chronic, stable. Cont Lipitor per home regimen. (7) Hypertension: Plan: -chronic, stable. Continue propranolol per home regimen. (8) Depression: Plan: - chronic, stable. Continue lexapro and wellbutrin. I confirmed with her today that she takes both. DVT ppx: scd, ambulatory CODE: FULL Dispo: to home when cleared by surgery. Thank you for involving us in the care of Miss Marcos. Please do not hesitate to call with questions or concerns. At this time medicine service will follow along. Lay Burton DO [facility] Hospitalist Admission and Anticipated Discharge Date Admission Date: October 12, 2022 Subjective 37 yo F admitted for biliary colic She reports not having a good night secondary to lack of sleep She has required narcotics for increased pain overnight postoperatively. She denies any fever She reports that she is no longer staying in the hospital per her request and this is okay with Dr. Morales. She has a lot of questions about wound care but understands that she should be taking a sponge bath. She was directed to discuss wound care instructions further with Dr. Morales. She is tolerating a diet today. Review of Systems Review of Systems: All systems were reviewed and negative except as indicated on subjective above. Physical Exam Physical Exam: CONSTITUTIONAL: morbid obese, vitals as above, generally well- appearing NAD EYES: normal conjunctivae, no scleral icterus ENT: external ear and nose normal, mucous membranes are moist. NECK: trachea midline RESPIRATORY: clear to auscultation bilaterally, no crackles, rales or wheezes, normal respiratory effort CARDIOVASCULAR: regular rate and rhythm, S1 and 2 heard without murmurs, gallops or rubs, no JVD, no peripheral edema CHEST: inspection of chest was normal GASTROINTESTINAL: soft, nontender, ND, no guarding, multiple laparoscopic sites are closed. Covered with small gauze. MUSCULOSKELETAL: strength 5/5 throughout, head is normocephalic and atraumatic SKIN: warm and dry NEUROLOGIC: CN 2-12 grossly intact, no sensory deficit, normal cognition, normal speech, no tremor PSYCHIATRIC: alert cooperative and oriented to person, place and time. Results & Data Results & Data ([facility]) Vital Signs (Past 12 Hours) Vital Signs Temp Pulse Pulse Resp BP Pulse Ox O2 Del Method 10/13/22 13:52 36.3 C L 91 H 66 18 124/78 97 10/13/22 08:11 36.3 C L 66 18 124/78 97 Room Air 10/13/22 03:00 36.5 C 83 18 127/81 96 Room Air Laboratory Results Short CBC 10/13/22 Range/Units 07:49 WBC 11.25 H (4.8-10.8) K/ul Hgb 13.4 (12.0-16.0) g/dl Hct 40.1 (37.0-47.0) % Plt Count 265 (130-400) K/uL BMP 10/13/22 07:49 Sodium 138 Potassium 3.9 Chloride 107 Carbon Dioxide 25 BUN 7 Creatinine 0.73 Glucose 137 H Calcium 8.7 Liver Function 10/13/22 Range/Units 07:49 Total Bilirubin 0.8 (0.2-1.0) mg/dl AST 20 (13-39) U/L ALT 16 (7-52) U/L Alkaline Phosphatase 63 (34-104) U/L Albumin 3.6 (3.4-5.0) gm/dl Medications Administered Current Inpatient Medications Atorvastatin Calcium (Atorvastatin 10 Mg Tab) 10 mg PO QPM STEPHIE Stop: 11/10/22 20:59 Last Admin: 10/12/22 20:48 Dose: 10 mg Bupropion HCl (Bupropion Xl 150 Mg Tabcr) 150 mg PO QPM STEPHIE Stop: 11/10/22 20:59 Last Admin: 10/12/22 20:47 Dose: 150 mg Dextrose (Dextrose 50% 50 Ml Syringe) 25 - 50 ml IV UD PRN; Protocol PRN Reason: Hypoglycemia Protocol Stop: 11/10/22 20:43 Escitalopram Oxalate (Escitalopram Oxalate 20 Mg Tab) 20 mg PO HS STEPHIE Stop: 11/10/22 22:14 Last Admin: 10/12/22 20:48 Dose: 20 mg Glucagon (Glucagon For Inj 1 Mg Vial) 1 mg SQ UD PRN; Protocol PRN Reason: Hypoglycemia Protocol Stop: 11/10/22 20:43 Glucose (Glucose 40% Gel 15 Gm Tube) 15 - 30 gm PO UD PRN; Protocol PRN Reason: Hypoglycemia Protocol Stop: 11/10/22 20:43 Glucose (Glucose 10 Tab/Tube) 4 - 8 tab PO UD PRN; Protocol PRN Reason: Hypoglycemia Treatment Stop: 11/10/22 20:43 Hydromorphone HCl (Hydromorphone Inj 0.5 Mg/0.5 Ml Syr) 0.25 mg IV Q3H PRN PRN Reason: Pain (1,2,3,4,5) & Pre PT Stop: 10/25/22 17:00 Hydromorphone HCl (Hydromorphone Inj 0.5 Mg/0.5 Ml Syr) 0.5 mg IV Q3H PRN PRN Reason: Pain (6,7,8,9,10) Stop: 10/25/22 17:00 Last Admin: 10/13/22 10:45 Dose: 0.5 mg Sodium Chloride (Nss 1000ml) 1,000 mls @ 125 mls/hr IV .Q8H [facility] Stop: 11/10/22 17:00 Last Admin: 10/13/22 09:47 Dose: 125 mls/hr Piperacillin Sod/Tazobactam (Sod 3.375 gm/ Dextrose) 115 mls @ 28.75 mls/hr IV Q8H [facility]; Protocol Stop: 10/13/22 21:59 Last Admin: 10/13/22 13:22 Dose: 28.8 mls/hr Insulin Aspart (Insulin Aspart Per Unit) 0 units SC ACHS [facility] Stop: 11/10/22 20:59 Last Admin: 10/13/22 13:18 Dose: 3 units Medroxyprogesterone Acetate (Medroxyprogesterone Acetate 150 Mg/Ml Vial) 150 mg IM Q90D [facility] Stop: 11/11/22 18:44 Last Admin: 10/12/22 20:47 Dose: Not Given Metformin HCl (Metformin Hcl 500 Mg Tab) 1,000 mg PO BIDM STEPHIE Stop: 11/12/22 07:59 Last Admin: 10/13/22 08:51 Dose: 1,000 mg Miscellaneous (Carbohydrates For Hypoglycemia ) 15 - 30 gm PO UD PRN PRN Reason: Hypoglycemia Protocol Stop: 11/10/22 20:43 Ondansetron HCl (Ondansetron Inj 2 Mg/Ml 2 Ml Vial) 4 mg IV Q4H PRN PRN Reason: Nausea And Vomiting Stop: 11/10/22 17:00 Last Admin: 10/11/22 18:22 Dose: 4 mg Oxycodone/Acetaminophen (Oxycodone/Acetaminophen 5mg/325mg Tab) 1 tab PO Q4H PRN PRN Reason: Pain Stop: 10/26/22 18:44 Last Admin: 10/13/22 07:30 Dose: 1 tab Pantoprazole Sodium (Pantoprazole 40 Mg Tab) 40 mg PO DAILY STEPHIE Stop: 11/11/22 08:59 Last Admin: 10/13/22 08:51 Dose: 40 mg Propranolol HCl (Propranolol Hcl La 80 Mg Capcr) 160 mg PO DAILY STEPHIE Stop: 11/11/22 08:59 Last Admin: 10/13/22 08:51 Dose: 160 mg
--- NOTE | 2022-10-13 18:36 | Discharge Summary (DS) ---
DATE OF ADMISSION: 10/11/2022 DATE OF DISCHARGE: 10/13/2022. ADMISSION DIAGNOSIS: Acute abdominal pain, acute cholecystitis, cholelithiasis. DISCHARGE DIAGNOSES: Acute cholecystitis with cholelithiasis. OPERATION: Laparoscopic cholecystectomy. SURGEON: Rayo Morales MD. DETAILS OF DISCHARGE SUMMARY: This is a 37-year-old female who was admitted to the hospital with the right upper quadrant pain and the patient had ultrasound diagnosis of acute cholecystitis with jose e lithiasis. I recommended to do a laparoscopic cholecystectomy. We took the patient to the OR, we di d laparoscopic cholecystectomy and the patient tolerated the procedure well. After the procedure, e patient was transferred to regular floor. The patient is doing fine and tolerated the diet. No si gnificant abdominal pain. No nausea, no vomiting. PHYSICAL EXAMINATION: VITAL SIGNS: Temperature is 36.3, respiratory rate 18, heart rate 66, blood pressure is 124/78, O2 s aturation 97% on room air. GENERAL: The patient is alert, awake, oriented x3. HEENT: Within normal limitation. NEUROLOGIC: Intact. NECK: No JVD. CHEST: Bilateral lung sounds clear. HEART: Normal S1 and S2. No murmur. ABDOMEN: Soft, mild tenderness on the incision site. No rebound pain, no distension. Bowel sounds positive. All the incisions intact. No redness. EXTREMITIES: No edema. The patient wanted to go home today. We gave the patient postoperative care instruction, the patient understands. Job ID: [id number]
== END 2022-10-13 15:19 | disposition home or self-care (01) | DRG 418 ==
LOC: 3N 10:58 → ED 10:58 → 3N 16:45